=== PATIENT | male | born 1935 | race Caucasian/White ===

== ENCOUNTER 2019-06-13 11:00 | Outpatient (RCR) | payer SELFPAY | END 2019-07-13 00:01 | LOC: CR 11:00 | PROVIDERS: Family Provider Family Medicine; Referring Provider Internal Medicine Cardiovascular Disease; Visit Provider Internal Medicine Cardiovascular Disease | DX: I20.8 Other forms of angina pectoris (principal) ==

== ENCOUNTER 2019-07-19 16:05 | Outpatient (CLI) | payer MEDICARE, BC, SELFPAY ==
--- NOTE | 2019-07-19 16:12 | CTR_ITS ---
PROCEDURE INFORMATION: Exam: CT Abdomen And Pelvis Without Contrast Exam date and time: 07/19/2019 4:44 PM Age: 83 years old Clinical indication: Abdominal pain; Localized; Left lower quadrant (llq); Additional info: Obstipation, acute llq pain TECHNIQUE: Imaging protocol: Computed tomography of the abdomen and pelvis without contrast. Total DLP: 1113.51 mGy-cm Radiation optimization: All CT scans at this facility use at least one of these dose optimization techniques: automated exposure control; mA and/or kV adjustment per patient size (includes targeted exams where dose is matched to clinical indication); or iterative reconstruction. COMPARISON: CTA Thorac/Abd Aor [id number] 08/04/2018 1:50 PM FINDINGS: Lungs: There is subpleural atelectasis of the dependent portions of the lungs. Mediastinum: A small hiatal hernia is present. Liver: Unremarkable.No mass. Gallbladder and bile ducts: There has been a cholecystectomy. Pancreas: Normal. No ductal dilation. Spleen: Normal. No splenomegaly. Adrenals: Normal. No mass. Kidneys and ureters: There is no evidence of hydronephrosis. Punctate nephrolithiasis versus renal vascular calcifications are noted. There are no obstructing calculi. There is inflammatory perinephric stranding. Stomach and bowel: There is a focus of extraluminal inflammation with central fat density in the left lower quadrant/distal descending colon image 72. No ileus or obstruction. No additional bowel thickening or inflammatory changes are identified. Appendix: A normal appendix is identified. Intraperitoneal space: Unremarkable. No free air. No significant fluid collection. Vasculature: There is unchanged ectasia with moderate atherosclerotic changes in the aorta. The distal thoracic aorta measures 3.5 cm unchanged since the prior exam. Heavy calcification of the abdominal aorta and the origin of the renal arteries is identified. The abdominal aorta is ectatic with moderate to severe atherosclerotic changes. There is no aneurysm of the abdominal aorta. The right common iliac artery measures 2.1 cm and the left measures 1.8 cm in size unchanged since the prior exam. Lymph nodes: Unremarkable.No enlarged lymph nodes. Bladder: There is nonspecific bladder wall thickening. This may be related to incomplete distention. There is a small left-sided bladder diverticulum. Reproductive: The prostate demonstrates marked nonspecific enlargement. The seminal vesicles are normal. Bones/joints: Severe degenerative changes are noted in the lumbar spine. Marked bony remodeling and deformity is noted especially at L3-L4. Degenerative retrolisthesis of L3 on L4 is unchanged. No acute bony abnormality. Dextroscoliosis of the lumbar spine is noted. Soft tissues: There is a small fat filled periumbilical hernia unchanged since the prior exam. There are bilateral inguinal hernias. A loop of nonobstructed bowel is noted within the right inguinal hernia. CT/CT abdomen pelvis wo con [id number] IMPRESSION: 1. Epiploic appendigitis of the descending colon without evidence of colonic perforation or abscess. 2. Marked atherosclerotic changes in the aorta. 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 Radiation Dose CTDIVOL = (mGy): DLP = 1113.51 (mGy-cm)
[2019-07-19] MEDS: iohexol 300 mg/mL 50 mL Btl IV (16:47)
== END 2019-07-19 16:06 | disposition home or self-care (01) ==
LOC: CT 16:11
PROVIDERS: Family Provider Family Medicine; PCP Family Medicine; Visit Provider Family Medicine
DX: K63.89 Other specified diseases of intestine (principal); I70.0 Atherosclerosis of aorta; I72.3 Aneurysm of iliac artery
CPT/HCPCS: 74176

== ENCOUNTER 2019-07-20 14:46 | Outpatient (RCR) | payer SELFPAY | END 2019-08-13 23:59 | disposition home or self-care (01) | LOC: CR 14:46 | PROVIDERS: Family Provider Family Medicine; PCP Family Medicine; Referring Provider Internal Medicine Cardiovascular Disease; Visit Provider Internal Medicine Cardiovascular Disease | DX: I20.8 Other forms of angina pectoris (principal) ==

== ENCOUNTER 2019-08-16 10:47 | Outpatient (RCR) | payer SELFPAY | END 2019-09-11 23:59 | disposition home or self-care (01) | LOC: CR 10:47 | PROVIDERS: Family Provider Family Medicine; PCP Family Medicine; Referring Provider Internal Medicine Cardiovascular Disease; Visit Provider Internal Medicine Cardiovascular Disease | DX: I20.8 Other forms of angina pectoris (principal) ==

== ENCOUNTER 2019-09-13 11:27 | Outpatient (RCR) | payer SELFPAY | END 2019-10-12 23:59 | disposition home or self-care (01) | LOC: CR 11:27 | PROVIDERS: Family Provider Family Medicine; PCP Family Medicine; Referring Provider Internal Medicine Cardiovascular Disease; Visit Provider Internal Medicine Cardiovascular Disease | DX: I20.8 Other forms of angina pectoris (principal) ==

== ENCOUNTER 2019-12-21 13:05 | Outpatient (RCR) | payer SELFPAY | END 2020-01-11 23:59 | disposition home or self-care (01) | LOC: CR 13:05 | PROVIDERS: Family Provider Family Medicine; PCP Family Medicine; Referring Provider Internal Medicine Cardiovascular Disease; Visit Provider Internal Medicine Cardiovascular Disease | DX: I20.8 Other forms of angina pectoris (principal) ==

== ENCOUNTER 2020-01-12 11:47 | Outpatient (RCR) | payer SELFPAY | END 2020-02-11 23:59 | disposition home or self-care (01) | LOC: CR 11:47 | PROVIDERS: PCP Family Medicine; Referring Provider Internal Medicine Cardiovascular Disease; Visit Provider Internal Medicine Cardiovascular Disease | DX: I20.8 Other forms of angina pectoris (principal) ==

== ENCOUNTER 2020-01-24 15:25 | Outpatient (CLI) | payer MEDICARE, BC, SELFPAY ==
--- NOTE | 2020-01-24 15:45 | USCV_ITS ---
Urbano Hernandez Age: 84 Gender: M : 1935 Exam Date: 01/24/2020 15:31 Ordering Phys: Fadi Padron MD ([email or web address]) Technologist: Lorna Ruiz Exam Location: [facility] – [place], [place] Indication: CAD BP: / HR: 60 Rhythm: Sinus Technical Quality: Fair MEASUREMENTS (Male / Female) Normal Values 2D ECHO LV Diastolic Diameter PLAX 2.5 cm 4.2 - 5.9 / 3.9 - 5.3 cm LV Systolic Diameter PLAX 2.0 cm IVS Diastolic Thickness 0.8 cm 0.6 - 1.0 / 0.6 - 0.9 cm IVS Systolic Thickness 1.1 cm LVPW Diastolic Thickness 0.8 cm 0.6 - 1.0 / 0.6 - 0.9 cm LVPW Systolic Thickness 1.0 cm LVOT Diameter 2.1 cm LV Ejection Fraction 2D Teich 45.7 % LV Ejection Fraction MOD 2C 56.4 % LV Ejection Fraction 2C AL 54.9 % LA Diameter 4.8 cm LA Width 3.5 cm LA Height 4.4 cm RA Width 4.3 cm RA Height 5.7 cm M-MODE Aortic Annulus Diameter 3.9 cm LA Ao Ratio MM 1.2 MV E Point Septal Separation 1.4 cm DOPPLER AV Peak Velocity 167.0 cm/s LVOT Peak Velocity 89.0 cm/s AV Area Cont Eq vti 2.1 cm squared AV Area Cont Eq pk 1.9 cm squared MV Area PHT 4.3 cm squared Mitral E to A Ratio 0.8 MV E' Velocity 10.0 cm/s Mitral E to MV E' Ratio 5.6 Mitral E to LV E' Lateral Ratio 5.4 Mitral E to LV E' Septal Ratio 5.9 TR Peak Velocity 126.0 cm/s TR Peak Gradient 6.4 mmHg TV Peak E Velocity 84.0 cm/s Right Atrial Pressure 3.0 mmHg Pulmonary Artery Systolic Pressu 9.4 mmHg PV Peak Velocity 109.0 cm/s FINDINGS Left Ventricle Normal left ventricular size is slightly diminished LV ejection fraction of around 50% .dyskinetic basal inferolateral wall segment.Grade I/IV diastolic dysfunction (abnormal relaxation filling pattern), normal to mildly elevated filling pressures. Right Ventricle Pacemaker/defibrillator wire in the right ventricle Right Atrium Pacemaker/defibrillator wire.mildly increased right atrial size. Left Atrium Possibly of normal size Mitral Valve Thickened mitral valve. Trace to mild mitral valve regurgitation. Aortic Valve Thickened aortic valve. [id number] aortic valve regurgitation. Tricuspid Valve Could not visualized well. No gross abnormalities noted Pulmonic Valve Pulmonic valve not well visualized. Pericardium No pericardial effusion. Aorta Mildly dilated aortic annulus measuring 3.9 cm in diameter. CONCLUSIONS Normal left ventricular size with slightly diminished ejection fraction of 50%. Dyskinetic basal inferolateral wall segment.Grade I/IV diastolic dysfunction (abnormal relaxation filling pattern), normal to mildly elevated filling pressures. Thickened mitral valve. Trace to mild mitral valve regurgitation. Thickened aortic valve. [id number] aortic valve regurgitation. Mildly increased right atrial size. Mildly dilated aortic annulus measuring 3.9 cm in diameter. There is no pericardial effusion. There are no intracardiac masses. Comparison with the previous study is difficult because of the difference in the technical quality. Dr Fadi Padron MD FAC (Electronically Signed) Final Date: 25 January 2020 08:36 S
== END 2020-01-24 15:26 | disposition home or self-care (01) ==
LOC: US 15:26
PROVIDERS: PCP Family Medicine; Visit Provider Internal Medicine Cardiovascular Disease
DX: I71.2 Thoracic aortic aneurysm, without rupture (principal); I25.10 Atherosclerotic heart disease of native coronary artery without angina pectoris; I08.0 Rheumatic disorders of both mitral and aortic valves
CPT/HCPCS: 93306

== ENCOUNTER 2020-02-15 10:52 | Outpatient (RCR) | payer SELFPAY | END 2020-03-13 23:59 | disposition home or self-care (01) | LOC: CR 10:52 | PROVIDERS: PCP Family Medicine; Referring Provider Internal Medicine Cardiovascular Disease; Visit Provider Internal Medicine Cardiovascular Disease | DX: I20.8 Other forms of angina pectoris (principal) ==

== ENCOUNTER → 2020-02-22 11:10 | Outpatient (BNVA) | payer MEDICARE, BC, SELFPAY | PROVIDERS: PCP Family Medicine; Visit Provider Urology | DX: R33.9 Retention of urine, unspecified (principal); N40.1 Benign prostatic hyperplasia with lower urinary tract symptoms; Z87.438 Personal history of other diseases of male genital organs | CPT/HCPCS: 81001 ==

== ENCOUNTER → 2020-03-06 10:37 | Outpatient (BNVA) | payer MEDICARE, BC, SELFPAY | PROVIDERS: PCP Family Medicine; Visit Provider Internal Medicine Cardiovascular Disease | DX: I25.10 Atherosclerotic heart disease of native coronary artery without angina pectoris (principal) | CPT/HCPCS: 80048; 83880 ==

== ENCOUNTER 2020-03-14 14:14 | Outpatient (RCR) | payer SELFPAY | END 2020-04-12 23:59 | disposition home or self-care (01) | LOC: CR 14:14 | PROVIDERS: PCP Family Medicine; Referring Provider Internal Medicine Cardiovascular Disease; Visit Provider Internal Medicine Cardiovascular Disease | DX: I20.8 Other forms of angina pectoris (principal) ==

== ENCOUNTER → 2020-03-22 11:04 | Outpatient (BNVA) | payer MEDICARE, SELFPAY | PROVIDERS: PCP Family Medicine; Visit Provider Internal Medicine Cardiovascular Disease | DX: I10 Essential (primary) hypertension (principal); R06.02 Shortness of breath | CPT/HCPCS: 80048; 80076; 83880 ==

== ENCOUNTER 2020-04-10 14:10 | Inpatient (IN) | payer MEDICARE, BC, SELFPAY ==
[2020-04-10] VITALS (9 sets, daily range): BP systolic 150–172; BP diastolic 52–94; PULSE 62–138; RESP 14–21; TEMP 36.8–36.9; O2SAT 94–97; BMI 27.1
--- NOTE | 2020-04-10 14:19 | XRR_ITS ---
PROCEDURE INFORMATION: Exam: XR Chest, 1 View Exam date and time: 04/10/2020 2:59 PM Age: 84 years old Clinical indication: Dyspnea; Prior surgery; Surgery type: Pacemaker TECHNIQUE: Imaging protocol: XR of the chest Views: 1 view. COMPARISON: [facility] Chest 2 views 10/30/2018 3:42 PM FINDINGS: Tubes, catheters and devices: Cardiac pacemaker is present on the right side Lungs: Unremarkable. No consolidation. Pleural space: Elevation of the left hemidiaphragm No pleural effusion. No pneumothorax. Heart/Mediastinum: Unremarkable. No cardiomegaly. Bones/joints: Unremarkable. XR/XR chest 1V portable [id number] IMPRESSION: 1. No acute findings. 2. Cardiac pacemaker right chest 3. Elevated left hemidiaphragm
--- NOTE | 2020-04-10 14:30 | ED_ITS ---
HPI - General Adult General: Chief complaint: General Medical Stated complaint: DIARRHEA, COVID + Time Seen by Provider: 04/10/20 14:18 History of Present Illness: HPI narrative: 84-year-old male presents the emergency room complaining of difficulty breathing is been monitoring his oxygen sat at home is been 86% but he is not had any respiratory distress he is not usually on oxygen to maintain his sats in the 90s he is needing 4 L/min of oxygen. He states he tested positive with a rapid antibody test at an outside clinic approximately 10 days ago. He is not been having any fever he had diarrhea early on and 7 noticing a but that has for the most part resolved. He is mildly overweight he has a history of heart disease and hypertension. Onset (ago): day(s) () Relieving factors: none Exacerbating factors: none Associated symptoms: Reports cough, dyspnea, malaise and short of breath; Deny chest pain, confusion, diaphoresis, decreased appetite, fevers/chills, headache(s), nausea, rash, palpitations, seizures, syncope, vomiting or weakness Treatments prior to arrival: none Review of Systems Const: Reports: malaise; Denies: diaphoresis ENMT: Denies: throat pain, ear or mastoid pain, nasal discharge or nasal congestion Card: Denies: chest pain, palpitations or syncope Resp: Reports: dyspnea GI: Denies: nausea or vomiting : Denies: flank pain, dysuria, urinary frequency or urinary urgency Skin/Breast: Denies: rash Neuro: Denies: headache(s) or confusion [facility] ED PFSH: Medical History (Updated 04/10/20 @ 16:15 by Jerome Lozoya DO) Arthritis ASHD (arteriosclerotic heart disease) BPH loc w urin obs/LUTS Chronic back pain Elevated PSA History of pacemaker Hyperlipidemia Hypertension Pacemaker Peripheral arterial disease Thoracic aortic aneurysm Ulcerative colitis Surgical History H/O arthroscopy of left knee History of back surgery Hx of cholecystectomy S/P femoral-femoral bypass surgery Family History Mother , at in her 80's No problems noted. Father , at age 88 Diabetes Other Cancer Osteoporosis Social History Smoking and tobacco status: former smoker Alcohol intake: current Alcohol intake frequency: holidays/special occasions only Alcohol type: wine Marital status: Current occupational status: retired History of recent travel: No Physical Exam Const: COMMON NORMALS: no acute distress GENERAL APPEARANCE: cooperative and comfortable ORIENTATION/CONSCIOUSNESS: Yes awake, Yes oriented to person, Yes oriented to place and Yes oriented to time HENMT: COMMON NORMALS: normocephalic, atraumatic and hearing grossly normal bilaterally HEAD & SCALP: normocephalic and atraumatic Neck/C-Spine: COMMON NORMALS: no JVD Resp: COMMON NORMALS: normal respiratory effort, No retractions, No use of accessory muscles and clear to auscultation bilaterally AUSCULTATION: clear to auscultation bilaterally Cardio: COMMON NORMALS: no JVD, regular rate, regular rhythm and No murmurs present (Cardio) RATE: regular rate RHYTHM: regular rhythm GI: COMMON NORMALS: Soft to palpation and No hepatosplenomegaly present AUSCULTATION: Yes normoactive bowel sounds PALPATION: Yes Soft to palpation, No Tenderness to palpation present (GI), No Guarding due to palpation present (GI) and Yes No hepatosplenomegaly present Extremity: COMMON NORMALS: normal to inspection, capillary refill normal, no clubbing, cyanosis or edema, no calf tenderness and no pedal edema Neuro: SENSORIUM/ORIENTATION: Yes oriented to person, Yes oriented to place and Yes oriented to time Skin: COMMON NORMALS: no rashes or lesions noted GENERAL SKIN EXAM: no rashes or lesions noted Course Vital Signs: Vital signs: Vital Signs Temperature 98.1 F 04/12/20 16:14 Pulse Rate 69 04/12/20 16:14 Respiratory Rate 23 H 04/12/20 16:14 Blood Pressure 104/64 04/12/20 16:14 Pulse Oximetry 94 04/12/20 16:14 MDM - General Adult MDM Narrative: Medical decision making narrative: He does have risk factor being hypertension is a gentleman comfortable with sending him home with just supplemental oxygen. We will go ahead and admit him discussed with Dr. Camp he did asked that we do a CTA of the chest in route to the [facility]. Lab Data: Labs: Lab Results 0904/10/20 04/10/20 Range/Units 14:42 14:42 14:42 WBC 6.2 (4.0-10.0) 10^3/ uL RBC 3.98 L (4.1-5.3) 10^6/u L Hgb 13.1 (11.7-16.6) g/dL Hct 39.6 L (42.0-52.0) % MCV 99.5 H (80-94) fL MCH 32.9 (28.0-34.0) pg MCHC 33.1 (30.0-36.0) g/dL RDW 14.4 (12.1-15.1) % Plt Count 212 (130-400) 10^3/c mm MPV 9.6 (7.4-10.4) fL Neut % (Auto) 81.3 % Lymph % (Auto) 9.7 % [place] % (Auto) 7.1 % Eos % (Auto) 0.0 % Baso % (Auto) 0.0 % Neut # (Auto) 5.05 (1.8-7.7) 10^3/u L Lymph # (Auto) 0.6 L (0.8-4.8) 10^3/u L [place] # (Auto) 0.4 (0.2-0.9) 10^3/u L Eos # (Auto) 0.0 (0.0-0.8) 10^3/u L Baso # (Auto) 0.0 (0.0-0.1) 10^3/u L Nucleated RBC % (a uto) 0 % Nucleated RBCs # 0.0 /100WBC Fibrinogen 608 H (174-498) mg/dL D-Dimer 1.74 H (0-0.59) ug/mIFE U Sodium 135 L (136-145) mmol/L Potassium 4.0 (3.5-5.1) mmol/L Chloride 99 (98-107) mmol/L Carbon Dioxide 27 (22-29) mmol/L Anion Gap 13.0 (5-19) BUN 28 H (8-23) mg/dL Creatinine 1.3 H (0.7-1.2) mg/dL GFR Calculation Not Reportable Glucose 125 H (65-115) mg/dL Calculated Osmolal ity 287 (285-295) mOsm/k g Lactic Acid (0.5-2.2) mmol/L Calcium 8.3 L (8.5-10.5) mg/dL Total Bilirubin 0.7 (0.15-1.2) mg/dL AST 167 H (0-40) U/L ALT 199 H (0-41) U/L Alkaline Phosphata se 57 (40-130) IU/L Lactate Dehydrogen ase 443 H (135-225) U/L C-Reactive Protein 55.5 H (0.0-4.9) mg/L Total Protein 6.1 L (6.6-8.7) g/dL Albumin 3.5 (3.5-5.2) g/dL Globulin 2.6 (1.3-4.6) g/dL SARS-CoV-2 RNA (RT -PCR) (NOT DETECTED) SARS-CoV-2 Ag (Rap id) (Negative) 04/10/20 04/10/20 04/10/20 Range/Units 14:42 15:27 16:32 WBC (4.0-10.0) 10^3/ uL RBC (4.1-5.3) 10^6/u L Hgb (11.7-16.6) g/dL Hct (42.0-52.0) % MCV (80-94) fL MCH (28.0-34.0) pg MCHC (30.0-36.0) g/dL RDW (12.1-15.1) % Plt Count (130-400) 10^3/c mm MPV (7.4-10.4) fL Neut % (Auto) % Lymph % (Auto) % [place] % (Auto) % Eos % (Auto) % Baso % (Auto) % Neut # (Auto) (1.8-7.7) 10^3/u L Lymph # (Auto) (0.8-4.8) 10^3/u L [place] # (Auto) (0.2-0.9) 10^3/u L Eos # (Auto) (0.0-0.8) 10^3/u L Baso # (Auto) (0.0-0.1) 10^3/u L Nucleated RBC % (a uto) % Nucleated RBCs # /100WBC Fibrinogen (174-498) mg/dL D-Dimer (0-0.59) ug/mIFE U Sodium (136-145) mmol/L Potassium (3.5-5.1) mmol/L Chloride (98-107) mmol/L Carbon Dioxide (22-29) mmol/L Anion Gap (5-19) BUN (8-23) mg/dL Creatinine (0.7-1.2) mg/dL GFR Calculation Glucose (65-115) mg/dL Calculated Osmolal ity (285-295) mOsm/k g Lactic Acid 1.1 (0.5-2.2) mmol/L Calcium (8.5-10.5) mg/dL Total Bilirubin (0.15-1.2) mg/dL AST (0-40) U/L ALT (0-41) U/L Alkaline Phosphata se (40-130) IU/L Lactate Dehydrogen ase (135-225) U/L C-Reactive Protein (0.0-4.9) mg/L Total Protein (6.6-8.7) g/dL Albumin (3.5-5.2) g/dL Globulin (1.3-4.6) g/dL SARS-CoV-2 RNA (RT -PCR) Detected A (NOT DETECTED) SARS-CoV-2 Ag (Rap id) Positive H (Negative) Discharge Plan Discharge Patient Disposition: Admitted As Inpatient Admit Provider: Alex Dhaliwal Clinical Impression: COVID-19 virus infection, Hypoxia Condition: Stable Referrals: Bashir Rosales MD [Primary Care Provider] - Discharge Date/Time: 04/10/20 18:35 Coding Level of Care Code ED Cytopathology Technologist for Chg Fwd Exam Comprehensive
[2020-04-10 15:03] LABS: Fibrinogen 608 mg/dL (174-498)
[2020-04-10 15:06] LABS: D Dimer 1.74 ug/mIFEU (0-0.59)
[2020-04-10 15:10] LABS: Alanine Aminotransferase 199 U/L (0-41); Albumin Level 3.5 g/dL (3.5-5.2); Alkaline Phosphatase 57 IU/L (40-130); Aspartate Amino Transferase 167 U/L (0-40); Blood Urea Nitrogen 28 mg/dL (8-23); C Reactive Protein 55.5 mg/L (0.0-4.9); Calcium 8.3 mg/dL (8.5-10.5); Carbon Dioxide 27 mmol/L (22-29); Chloride 99 mmol/L (98-107); Globulin 2.6 g/dL (1.3-4.6); Glucose 125 mg/dL (65-115); Lactate Dehydrogenase 443 U/L (135-225); Osmolality Calculated 287 mOsm/kg (285-295); Sodium 135 mmol/L (136-145); Total Bilirubin 0.7 mg/dL (0.15-1.2); Total Protein 6.1 g/dL (6.6-8.7)
[2020-04-10 15:11] LABS: Hematocrit 39.6 % (42.0-52.0); Hemoglobin 13.1 g/dL (11.7-16.6); Lactic Sepsis W/Reflex 1.1 mmol/L (0.5-2.2); Lymphocytes # 0.6 10^3/uL (0.8-4.8); Lymphocytes % 9.7 %; Mean Corpuscular HGB Conc 33.1 g/dL (30.0-36.0); Mean Corpuscular Hemoglobin 32.9 pg (28.0-34.0); Mean Corpuscular Volume 99.5 fL (80-94); Mean Platelet Volume 9.6 fL (7.4-10.4); Monocytes # 0.4 10^3/uL (0.2-0.9); Monocytes % 7.1 %; Neutrophils # 5.05 10^3/uL (1.8-7.7); Neutrophils % 81.3 %; Nucleated Red Blood Cells % 0 %; Platelet Count 212 10^3/cmm (130-400); Red Blood Count 3.98 10^6/uL (4.1-5.3); Red Cell Distribution Width 14.4 % (12.1-15.1); White Blood Count 6.2 10^3/uL (4.0-10.0)
[2020-04-10] MEDS: dexamethasone 4 mg/mL INJ 6 MG IVP (15:15)
[2020-04-10 15:23] LABS: Creatinine Clr Calc Pharmacy 49.5667
--- NOTE | 2020-04-10 15:28 | PC.NURSE ---
Patient COVID swabbed and sent to lab.
--- NOTE | 2020-04-10 16:02 | CTR_ITS ---
PROCEDURE INFORMATION: Exam: CT Angiography Chest With Contrast Exam date and time: 04/10/2020 5:31 PM Age: 84 years old Clinical indication: Shortness of breath; Prior surgery; Additional info: Hypoxia TECHNIQUE: Imaging protocol: Computed tomographic angiography of the chest with intravenous contrast. 3D rendering (Not supervised by radiologist): MIP and/or 3D reconstructed images were created by the technologist. Radiation optimization: All CT scans at this facility use at least one of these dose optimization techniques: automated exposure control; mA and/or kV adjustment per patient size (includes targeted exams where dose is matched to clinical indication); or iterative reconstruction. Contrast material: VISI 320; Contrast volume: 68 ml; Contrast route: INTRAVENOUS (IV); COMPARISON: CTA Thorac/Abd Aor [id number] 08/04/2018 1:50 PM RADIATION DOSE METRICS: Total DLP (mGy-cm): 629.7 FINDINGS: Tubes, catheters and devices: Pacemaker defibrillator. Pulmonary arteries: No visible pulmonary embolism/pulmonary arterial thrombus. Aorta: Mild fusiform aneurysmal dilatation of the ascending thoracic aorta stable since 08/04/2018. Moderate arterial sclerotic disease. Tortuous thoracic aorta which can be seen in hypertensive cardiovascular disease. Lungs: Mild patchy bibasilar ground-glass opacities which could reflect active interstitial pneumonitis. Centrilobular emphysema. Senile fibrosis particularly in the lung bases. Evidence of COPD/chronic bronchitis. Mild dependent atelectasis. Pleural space: Unremarkable. No pneumothorax. No pleural effusion. Heart: Advanced 3 vessel coronary artery disease. Mild cardiomegaly. Left ventricular prominence. No visible pericardial effusion. Lymph nodes: No visible active mediastinal or hilar lymphadenopathy. Calcified mediastinal complexes of antecedent granulomatous disease. Gallbladder and bile ducts: Status post cholecystectomy. Bones/joints: Age-appropriate degenerative disease of the spine. Soft tissues: Unremarkable for age. CT/CT angio chest PE protcl [id number] IMPRESSION: 1. No visible pulmonary embolism/pulmonary arterial thrombus. 2. Mild patchy bibasilar ground-glass opacities which could reflect active interstitial pneumonitis. 3. Centrilobular emphysema. 4. Senile fibrosis particularly in the lung bases. 5. Evidence of COPD/chronic bronchitis. 6. Mild dependent atelectasis. 7. Antecedent granulomatous disease. 8. Advanced 3 vessel coronary artery disease. 9. Stable mild fusiform aneurysmal dilatation of the ascending thoracic aorta. Radiation Dose CTDIVOL = (mGy): DLP = 629.7 (mGy-cm)
--- NOTE | 2020-04-10 16:13 | PC.NURSE ---
BS was 66 via glucometer, sprite provided.
--- NOTE | 2020-04-10 16:35 | PC.NURSE ---
Patient rapid COVID swabbed at this time and sent to lab.
[2020-04-10 17:37] LABS: SARS Covid-2 Antigen Positive (Negative)
--- NOTE | 2020-04-10 18:33 | PM.HP ---
Providers/Chief Complaint Admitting Physician: Alex Dhaliwal MD Primary Care Provider: Bashir Rosales MD Chief Complaint: DIARRHEA, COVID + History of Present Illness Urbano Hernandez JR is a 84 year old male with past medical history of hypertension, ICD for ventricular tachycardia/syncope, CAD, PAD, post fem-pop bypass, popliteal artery aneurysm, thoracic artery aneurysm who presented to the ER because of 2 episodes of diarrhea since today morning, cough with difficulty in breathing since last night and feeling weak for last 1 day. In the ER COVID rapid antigen was positive. On evaluation patient states he was tested for COVID-19 around 10 days ago in his PCPs office and was positive. At that time patient has been having sore throat, runny nose, myalgias for 1 week. Patient is not having those symptoms anymore. Patient was at his baseline health till yesterday when he started having above symptoms. On presentation to the ER patient was saturating in mid 80s on room air so was put on 3 L nasal cannula and presently saturating 94%. He denies of having any nausea, vomiting, chest pain, palpitations, headache, dizziness. He does complain of mild loss of sense of sense of smell. He had one episode of diarrhea today morning which was nonbloody, not foul-smelling. Blood work in the ER showed a white count of 6.2, hemoglobin of 13.1, platelet of 212, d-dimer of 1.74, sodium of 135, chloride of 99, creatinine of 1.3 with baseline creatinine running from 1.6-1.8, AST/ALT of 167/199. Review of Systems General: Reports: 10 or more systems reviewed and unremarkable except in HPI and below Const: Reports: malaise; Denies: fever(s), chills, body aches, change in appetite, change in weight, night sweats, diaphoresis, change in sleep pattern, daytime sleepiness or snoring Eyes: Denies: change in vision, blurry vision, photophobia, eye discomfort or eye discharge ENMT: Denies: throat pain, enlarged tonsils, hoarseness, mouth pain, oral sores, dry mouth, tinnitus, nasal congestion or post nasal drip Card: Denies: chest pain, palpitations, irregular heart rhythm, edema, swelling of feet/ankles, lightheadedness, syncope, pre-syncope, dyspnea on exertion, orthopnea, leg pain with exertion or acrocyanosis Resp: Reports: dyspnea and productive cough; Denies: non-productive cough, wheezing, stridor, pain on inspiration, change in phlegm color, hemoptysis or chest congestion GI: Reports: diarrhea; Denies: abdominal pain, nausea, vomiting, hematemesis, coffee ground emesis, dysphagia, heartburn, constipation, bloating, GI cramping, change in bowel habits, pain on defecation, hematochezia or melena : Denies: flank pain, difficulty urinating, dysuria, urinary frequency, urinary urgency, urinary hesitancy, urinary dribbling, difficulty starting urination, change in urine stream, nocturia or hematuria Musc: Denies: neck pain, back pain, extremity pain, joint pain, joint swelling, joint redness, joint stiffness or limited range of motion Neuro: Denies: headache(s), numbness in extremities, weakness in extremities, sensory changes, lack of coordination, difficulty walking, frequent falls, dizziness, vertigo, confusion, Slurred speech present, difficulty communicating thoughts or seizure-like activity Psych: Denies: anxiety, depression, mood swings, panic attacks, hopelessness or irritability Endo: Denies: polyuria, polydipsia, tired all the time, cold intolerance, excessive sweating, flushing or heat intolerance Steve/Lymph: Denies: easy bruising or easy bleeding All/Imm: Denies: tongue swelling, facial swelling or acute wheezing Medications/Allergies Home Medications Medication Instructions Recorded Confirmed Last Taken Type potassium chloride 20 mEq 20 meq PO DAILY #90 tab 10/04/19 04/10/20 04/09/20 Rx tablet,extended release isosorbide mononitrate 30 mg 30 mg PO DAILY 90 Days #90 tab 11/01/19 04/10/20 04/09/20 Rx tablet,extended release 24 hr finasteride 5 mg tablet 5 mg PO DAILY #90 tab 11/02/19 04/10/20 04/09/20 Rx furosemide 40 mg tablet 40 mg PO DAILY 01/03/20 04/10/20 04/09/20 History 20 MG ezetimibe 10 mg tablet 10 mg PO DAILY #90 tab 02/08/20 04/10/20 04/09/20 Rx cetirizine 10 mg tablet 10 mg PO DAILY PRN tab 02/22/20 04/10/20 Unknown History docusate sodium 100 mg capsule 100 mg PO DAILY PRN 02/22/20 04/10/20 Unknown History magnesium oxide 500 mg capsule 500 mg PO BID 02/22/20 04/10/20 04/09/20 History multivitamin 1 tab PO DAILY 02/22/20 04/10/20 04/09/20 History nitroglycerin 0.4 mg sublingual 0.4 mg SUBLINGUAL Q5M PRN 02/22/20 04/10/20 Unknown History tablet polyethylene glycol 3350 17 17 gm PO DAILY PRN 02/22/20 04/10/20 Unknown History gram/dose oral powder rosuvastatin 20 mg tablet 20 mg PO DAILY 02/22/20 04/10/20 04/09/20 History silodosin 8 mg capsule 8 mg PO .COMPLEX 02/22/20 04/10/20 04/07/20 History lisinopril 10 mg tablet 10 mg PO DAILY 30 Days #30 tab 03/15/20 04/10/20 04/09/20 Rx amiodarone 200 mg PO DAILY 04/10/20 04/10/20 04/10/20 History clopidogrel 75 mg PO DAILY 04/10/20 04/10/20 04/09/20 History flunisolide 2 spray INTRANASAL BID PRN 04/10/20 04/10/20 Unknown History Allergies Allergy/AdvReac Type Severity Reaction Status Date / Time morphine Allergy Unknown Verified 02/22/20 11:12 Sulfa (Sulfonamide Allergy Unknown Verified 02/22/20 11:12 Antibiotics) amlodipine AdvReac Peripheral Verified 03/15/20 22:32 edema hydralazine AdvReac head Verified 02/22/20 11:12 stuffed up PFSH Acute PFSH: Medical History (Updated 04/10/20 @ 16:15 by Jerome Lozoya DO) Arthritis ASHD (arteriosclerotic heart disease) BPH loc w urin obs/LUTS Chronic back pain Elevated PSA History of pacemaker Hyperlipidemia Hypertension Pacemaker Peripheral arterial disease Thoracic aortic aneurysm Ulcerative colitis Surgical History H/O arthroscopy of left knee History of back surgery Hx of cholecystectomy S/P femoral-femoral bypass surgery Family History Mother , at in her 80's No problems noted. Father , at age 88 Diabetes Other Cancer Osteoporosis Social History Smoking and tobacco status: former smoker Alcohol intake: current Alcohol intake frequency: holidays/special occasions only Alcohol type: wine Marital status: Current occupational status: retired History of recent travel: No Vitals/I&O/Wt Last Vital Signs Temp 98.3 F 04/10/20 14:22 Pulse 62 04/10/20 18:10 Resp 15 04/10/20 18:10 BP 153/86 04/10/20 18:10 Pulse Ox 95 04/10/20 18:10 Weight last 48 hrs Weight 90.718 kg Physical Exam Narrative: EXAM NARRATIVE: General: No acute distress, AO x3, 96% on 3 L nasal cannula HEENT: PERRLA, pupils bilaterally equal and reactive Chest: Normal vesicular breath sounds, occasional rhonchi present all over the lung orozco, no added sounds, equal good air entry bilaterally CVS: S1-S2 regular, end diastolic murmur at the aortic area, no tachycardia, no gallops, no rubs Abdomen: Soft, nontender, no organomegaly, bowel sounds present Neuro: No focal deficits, no facial deformity, AO x3, power 5/5 in all limbs Data : 04/10/20 14:42 04/10/20 14:42 A&P Assessment and plan (1) Hypoxia: Status: Acute (2) COVID-19 virus infection: Status: Acute (3) Pacemaker: Status: Acute (4) ASHD (arteriosclerotic heart disease): Status: Acute (5) Hypertension: Status: Acute Qualifiers: Hypertension type: essential hypertension Qualified Code(s): I10 - Essential (primary) hypertension (6) Hyperlipidemia: Status: Acute Qualifiers: Hyperlipidemia type: mixed hyperlipidemia Qualified Code(s): E78.2 - Mixed hyperlipidemia Additional A&P Information Acute hypoxic respiratory failure: Most likely because of COVID-19 pneumonia. Patient was tested positive around 10 days ago and has had a symptoms for more than 2 and half weeks now. Cannot rule out post viral bacterial infection, pulmonary embolism post COVID. Do CTA PE protocol. For now start patient on Eliquis 5 mg twice daily. At least moderate disease as patient is requiring at least 2 to 4 L of oxygen supplementation to keep saturation over 90%. Given patient does not have any leukocytosis, fever bacterial pneumonia is unlikely. Check urine Legionella, bacterial antigen, urinalysis, blood culture, procalcitonin, proBNP, MRSA swab, sputum culture. For now start patient on levofloxacin 500 every 48 hours as per creatinine clearance. CHF unlikely as patient seems euvolemic or at baseline fluid balance. Most recent echo done in January 2020 shows an EF of 50% with grade 1 diastolic dysfunction with mild to moderate AI. Strict input output charting, fluid restriction up to 1500 cc, daily weights. Will dose daily Lasix daily as per the fluid status. Continue to monitor inflammatory markers daily. Monitor ferritin level, fibrinogen level, d-dimer level, CRP, LDH daily. Will check CTA chest to rule out PE and better visualization of consolidation. Remdesevir for 5-day course, dexamethasone 6 mg IV stat. Start patient on vitamin C, zinc. Advair, Spiriva. Oxygen supplementation keeping saturation over 90%. CKD: Baseline creatinine 1.4-1.8. Creatinine better at the moment. We will avoid nephrotoxic drugs as patient is getting CTA PE done right now. We will continue to monitor BMP daily. Hypertension: Goal blood pressure less than 140/90 mmHg. Continue home dose of antihypertensive including Imdur. Patient's creatinine better than before but as patient is getting CTA PE will hold off lisinopril for now. CAD/PAD: Patient is chest pain-free. Continue home dose of Plavix, statin, . History of ventricular tachycardia: Patient has an ICD. Continue home dose of amiodarone. Continue other chronic medications. We will change medication as per the results of the blood work and clinical picture. Goals of care: Patient states he would not want any mechanical ventilation with intubation but is okay with chest compressions. Eliquis will also help with DVT prophylaxis. Protonix for PUD prophylaxis. Cardiac diet. 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
[2020-04-10] MEDS: iodixanol 320 mg/mL 100mL Btl IV (18:45)
[2020-04-10] MEDS: benzonatate 100 mg Capsule PO (20:15)
[2020-04-10] MEDS: famotidine 20 mg/2 mL INJ IVP (20:19)
[2020-04-10 21:40] LABS: NT Pro B Type Natriuretic Pept 1211 pg/mL (0-450); Procalcitonin 0.08 ng/mL (0-0.5); Thyroid Stimulating Hormone 0.47 uIU/mL (0.27-4.20)
[2020-04-10 21:51] LABS: Iron 30 ug/dL (59-158)
[2020-04-10 22:16] LABS: Percent Saturation 19.1 % (20-50); Total Iron Binding Capacity 157 mcg/dl; Unsaturated Iron Binding 127 ug/dL (112-347)
[2020-04-11] VITALS (11 sets, daily range): BP systolic 101–136; BP diastolic 64–84; PULSE 0–77; RESP 17–35; TEMP 36.7–36.8; O2SAT 0–94
[2020-04-11 07:26] LABS: Basophils % 0.2 %; Hematocrit 38.4 % (42.0-52.0); Lymphocytes # 0.5 10^3/uL (0.8-4.8); Lymphocytes % 8.3 %; Mean Corpuscular HGB Conc 33.9 g/dL (30.0-36.0); Mean Corpuscular Hemoglobin 32.7 pg (28.0-34.0); Mean Corpuscular Volume 96.7 fL (80-94); Mean Platelet Volume 9.6 fL (7.4-10.4); Monocytes # 0.4 10^3/uL (0.2-0.9); Monocytes % 6.3 %; Neutrophils # 5.15 10^3/uL (1.8-7.7); Neutrophils % 83.6 %; Nucleated Red Blood Cells % 0 %; Platelet Count 254 10^3/cmm (130-400); Red Blood Count 3.97 10^6/uL (4.1-5.3); White Blood Count 6.2 10^3/uL (4.0-10.0)
[2020-04-11 07:41] LABS: Alanine Aminotransferase 174 U/L (0-41); Albumin Level 3.4 g/dL (3.5-5.2); Alkaline Phosphatase 56 IU/L (40-130); Anion Gap 16.1 (5-19); Aspartate Amino Transferase 126 U/L (0-40); Blood Urea Nitrogen 26 mg/dL (8-23); Calcium 8.3 mg/dL (8.5-10.5); Carbon Dioxide 24 mmol/L (22-29); Chloride 100 mmol/L (98-107); Globulin 1.9 g/dL (1.3-4.6); Glucose 120 mg/dL (65-115); Osmolality Calculated 288 mOsm/kg (285-295); Potassium 4.1 mmol/L (3.5-5.1); Sodium 136 mmol/L (136-145); Total Bilirubin 0.7 mg/dL (0.15-1.2); Total Protein 5.3 g/dL (6.6-8.7)
[2020-04-11 07:50] LABS: C Reactive Protein 56.7 mg/L (0.0-4.9); Chol HDL Ratio 2.57 mg/dL (1.0-5.00); Cholesterol 121 mg/dL (0-200); Creatine Phosphokinase 79 U/L (39-308); HDL Cholesterol 47 mg/dL (60-100); LDL Cholesterol Calculated 57 mg/dL (50-129); Lactate Dehydrogenase 415 U/L (135-225); NT Pro B Type Natriuretic Pept 2683 pg/mL (0-450); Triglycerides 84 mg/dL (0-150); VLDL Cholestrol Calculation 17 mg/dL (0-30)
[2020-04-11 08:06] LABS: Ferritin 1962 ng/mL (30-400)
[2020-04-11 08:40] LABS: Estmated Average Glucose 128; Hemoglobin A1C 6.1 % (4.0-6.0)
[2020-04-11 09:00] LABS: D Dimer 1.98 ug/mIFEU (0-0.59)
[2020-04-11] MEDS: clopidogrel 75 mg Tablet PO (09:26)
[2020-04-11] MEDS: benzonatate 100 mg Capsule PO ×3 (09:26→21:00)
[2020-04-11] MEDS: apixaban 5 mg Tablet PO ×2 (09:26→17:05)
[2020-04-11] MEDS: isosorbide mononitrate ER 30 mg Tablet PO (09:26)
[2020-04-11] MEDS: ezetimibe 10 mg Tablet PO (09:26)
[2020-04-11] MEDS: atorvastatin 40 mg Tablet 80 MG PO (09:26)
[2020-04-11] MEDS: finasteride 5 mg Tablet PO (09:26)
[2020-04-11] MEDS: amiodarone 200 mg Tablet PO (09:26)
[2020-04-11] MEDS: famotidine 20 mg/2 mL INJ IVP ×2 (09:27→21:01)
[2020-04-11] MEDS: zinc gluconate 50 mg Tablet PO (09:27)
[2020-04-11] MEDS: ascorbic acid 500 mg Tablet PO (09:27)
[2020-04-11] MEDS: multivitamin therapeutic Tablet 1 TAB PO (09:27)
--- NOTE | 2020-04-11 11:43 | P.PN_ITS ---
Subjective Subjective: Interval history: Events overnight. On examination patient is having his lunch. He states he is feeling a lot better. He states his energy levels are good. He is wondering when can he go home. He states his is also tested positive for COVID-19 pneumonia and is worried about her. On examination he is hemodynamically stable. Patient has remained afebrile. On ex amination he is on 5 L nasal cannula saturation 91%. He states his appetite is appropriate. He is getting up from bed going to bathroom. He is doing incentive spirometry occasionally. Vitals/I&O/Wt Last Vital Signs Temp 98.3 F 04/11/20 04:53 Pulse 70 04/11/20 10:37 Resp 17 04/11/20 10:37 BP 125/73 04/11/20 09:23 Pulse Ox 90 04/11/20 10:37 04/10/20 04/11/20 04/11/20 22:59 06:59 14:59 Intake Total 250 / 250 360 / 360 Output Total 790 / 790 175 / 965 Balance -540 / -540 -175 / -715 360 / 360 Weight last 48 hrs Weight 87.679 kg Weight 90.718 kg Physical Exam Narrative: EXAM NARRATIVE: General: No acute distress, AO x3, 91 percent on 5 L nasal cannula HEENT: PERRLA, pupils bilaterally equal and reactive Chest: Normal vesicular breath sounds, occasional rhonchi present all over the lung orozco, no added sounds, equal good air entry bilaterally CVS: S1-S2 regular, end diastolic murmur at the aortic area, no tachycardia, no gallops, no rubs Abdomen: Soft, nontender, no organomegaly, bowel sounds present Neuro: No focal deficits, no facial deformity, AO x3, power 5/5 in all limbs Data : 04/11/20 06:20 04/11/20 06:20 Micro: Microbiology 04/10/20 14:42 Blood Culture - Preliminary Blood SPECIMEN COLLECTED 04/10/20 20:45 Blood Culture - Preliminary Blood SPECIMEN COLLECTED A&P Assessment and plan (1) Hypoxia: Status: Acute (2) COVID-19 virus infection: Status: Acute (3) Pacemaker: Status: Acute (4) ASHD (arteriosclerotic heart disease): Status: Acute (5) Hypertension: Status: Acute Qualifiers: Hypertension type: essential hypertension Qualified Code(s): I10 - Essential (primary) hypertension (6) Hyperlipidemia: Status: Acute Qualifiers: Hyperlipidemia type: mixed hyperlipidemia Qualified Code(s): E78.2 - Mixed hyperlipidemia Additional A&P Information Acute hypoxic respiratory failure: Most likely because of COVID-19 pneumonia. Pulmonary medicine ruled out with CTA PE protocol. Procalcitonin negative. Chances of bacterial infection are low for now. Continue with Eliquis 5 mg twice daily. At least moderate disease as patient is requiring at least 2 to 4 L of oxygen supplementation to keep saturation over 90%. Given patient does not have any leukocytosis, fever bacterial pneumonia is unlikely. Pro-Jaren negative, MRSA swab, sputum culture results awaited. Continue levofloxacin 500 mg daily as per the creatinine clearance. CHF unlikely as patient seems euvolemic or at baseline fluid balance. Most r ecent echo done in January 2020 shows an EF of 50% with grade 1 diastolic dysfunction with mild to moderate AI. proBNP elevated as compared to yesterday. Patient required more oxygen than yesterday. We will restart on home dose of Lasix 40 mg daily. Strict input output charting. Daily weights. Depending on urine output and blood pressure will see if patient requires any more further diuresis today. Continue to monitor inflammatory markers daily. Monitor ferritin level, fibrinogen level, d-dimer level, CRP, LDH daily. Will check CTA chest to rule out PE and better visualization of consolidation. Continue with Remdesevir , dexamethasone 6 mg IV daily. Day 2/5 today. Continue with Advair, Spiriva. Continue with Tessalon Perles, vitamin C, zinc. Oxygen supplementation keeping saturation over 90%. CKD: Baseline creatinine 1.4-1.8. Creatinine better at the moment. We will avoid nephrotoxic drugs as patient is getting CTA PE done right now. We will continue to monitor BMP daily. Hypertension: Goal blood pressure less than 140/90 mmHg. Continue home dose of antihypertensive including Imdur. Patient's creatinine better than before but as patient is getting CTA PE will hold off lisinopril for now. CAD/PAD: Patient is chest pain-free. Continue home dose of Plavix, statin, History of ventricular tachycardia: Patient has an ICD. Continue home dose of amiodarone. HbA1c 6.1, iron panel results appreciated. We will start patient on oral iron supplementation. Continue other chronic medications. We will change medication as per the results of the blood work and clinical picture. Goals of care: Patient states he would not want any mechanical ventilation with intubation but is okay with chest compressions. Eliquis will also help with DVT prophylaxis. Protonix for PUD prophylaxis. Cardiac diet. Attestations Medical Necessity Statement*: Acute hypoxic respiratory failure because of [id number] pneumonia Time Spent in Patient Care: Greater than 35 minutes (>than 50% of time spent in counselling and/or direct pt care on unit) . 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
[2020-04-11] MEDS: FUROsemide 10 mg/mL SDV 4mL 40 MG IVP ×2 (12:16→16:06)
[2020-04-11] MEDS: ferrous gluconate 324 mg Tablet PO (17:05)
[2020-04-11 17:13] LABS: Quest SARS-CoV-2 RNA DETECTED (NOT DETECTED)
[2020-04-11 18:57] LABS: Add Urine Culture? No; Bacteria Urine TRACE /hpf; Bilirubin Urine Neg (Negative); Blood Urine Neg (Negative); Glucose Urine UA Norm (Normal); Ketones Urine Negative (Negative); Leukocyte Esterase Urine Negative (Negative); Mucus Urine TRACE /hpf; Nitrate Urine Negative (Negative); Protein Urine Neg (Negative); Squamous Epithelial Cell Urine 0-4 /hpf (0-5); Urine Appearance Clear (CLEAR); Urine Color Yellow (Yellow); Urobilinogen Urine Neg (Negative); pH Urine 6 (5-7)
[2020-04-12] VITALS (13 sets, daily range): BP systolic 104–140; BP diastolic 62–81; PULSE 60–78; RESP 16–26; TEMP 36.7–37.3; O2SAT 92–95; BMI 24.3
[2020-04-12] MEDS: levoFLOXacin 500 mg Tablet PO (05:53)
[2020-04-12 06:28] LABS: Fibrinogen 462 mg/dL (174-498)
[2020-04-12 06:31] LABS: D Dimer 1.64 ug/mIFEU (0-0.59)
[2020-04-12 06:49] LABS: C Reactive Protein 34.1 mg/L (0.0-4.9); Creatine Phosphokinase 164 U/L (39-308)
[2020-04-12 07:03] LABS: Ferritin 1735 ng/mL (30-400)
[2020-04-12 07:04] LABS: Lactate Dehydrogenase 425 U/L (135-225)
[2020-04-12] MEDS: finasteride 5 mg Tablet PO (09:17)
[2020-04-12] MEDS: ezetimibe 10 mg Tablet PO (09:17)
[2020-04-12] MEDS: isosorbide mononitrate ER 30 mg Tablet PO (09:17)
[2020-04-12] MEDS: amiodarone 200 mg Tablet PO (09:17)
[2020-04-12] MEDS: famotidine 20 mg/2 mL INJ IVP ×2 (09:17→21:35)
[2020-04-12] MEDS: benzonatate 100 mg Capsule PO ×3 (09:22→21:27)
[2020-04-12] MEDS: multivitamin therapeutic Tablet 1 TAB PO (09:23)
[2020-04-12] MEDS: atorvastatin 40 mg Tablet 80 MG PO (09:23)
[2020-04-12] MEDS: clopidogrel 75 mg Tablet PO (09:23)
[2020-04-12] MEDS: bisacodyl 5 mg Tablet 10 MG PO (09:23)
[2020-04-12] MEDS: apixaban 5 mg Tablet PO ×2 (09:23→17:06)
[2020-04-12] MEDS: ascorbic acid 500 mg Tablet PO (09:23)
[2020-04-12] MEDS: zinc gluconate 50 mg Tablet PO (09:24)
--- NOTE | 2020-04-12 09:36 | PC.NURSE ---
see first assessment
[2020-04-12] MEDS: ferrous gluconate 324 mg Tablet PO ×2 (09:42→17:06)
[2020-04-12] MEDS: FUROsemide 40 mg Tablet PO (12:18)
[2020-04-12 14:03] LABS: ABG PCO2 34.6 mmHg (35-45); ABG PH Result 7.44 (7.35-7.45); Alveolar-Arterial Oxygen Gradi 5.2 mmHg (5-10); Arterial Blood Gas Hematocrit 42.5 % (42-52); Base Excess ABG -0.3 mmol/L (-2.0-2.0); Blood Gas Allen Test Pos; Blood Gas Sample Site Radial, left; Blood Gas Sample Type Arterial; Carboxyhemoglobin 0.9 %THgb (0.4-20.1); HCO3 ABG 23.3 mmol/L (22-26); Ionized Calcium Level - ABG 1.1 mmol/L (1.1-1.4); Methemoglobin 0.6 % (0.4-1.5); Oxygen Device NC; Oxygen Saturation ABG 93.4; PO2 ABG 65.7 mmHg (80.0-100.0); Potassium Level - ABG 3.7 mmol/L (3.5-5.0); Total Hemoglobin 13.9 g/dL (14-18)
--- NOTE | 2020-04-12 15:11 | PC.NURSE ---
patient was on toilet when call light rang. went in and patient was on toilet with poop all over room and patient. patient is alert and oriented and no issues prior to this. when i asked patient why he didnt call me and he said because he didnt have enough time. i educated patient on the call light and importance to not get up without a nurse or tech in the room. patient did not have o2 on as well. cleaned/bathed patient and cleaned floor, chaanged sheets. notified housekeeping. mopped floors. got patient back in bed with oxygen and turned bed alarm on. vitals stable at this time.
--- NOTE | 2020-04-12 15:32 | PC.NURSE ---
no neuro change at this time.
--- NOTE | 2020-04-12 15:34 | PC.NURSE ---
catheter had been tugged on and some blood clots in urine came out and urine more pinkish. flushed with 20cc sterile NS. catheter line is now yellow urine and no clots. will continue to monitor.
[2020-04-12] MEDS: ALPRAZolam 0.25 mg Tablet PO (15:40)
--- NOTE | 2020-04-12 17:16 | P.PN_ITS ---
Subjective Subjective: Interval history: No acute events overnight. On examination patient feels a little weak today. States his energy levels and appetite are not good today. He is requiring more more oxygen supplementation to keep her saturation over 90%. Currently he is requiring heated high flow at 45 L 75% to maintain saturation 94%. Discussed in detail with patient regarding need of incentive spirometry and flutter valve. Also discussed regarding semiprone while resting in bed. Also discussed that unfortunately at [facility] we do not have plasma therapy which he might require if he requires more more oxygen supplementation. Also discussed that we do not have any bed capability of prone position if intubated or Flolan to prevent from intubation. Discussed the same with patient's . Have agreed for possible transfer if required. Vitals/I&O/Wt Last Vital Signs Temp 98.1 F 04/12/20 16:14 Pulse 69 04/12/20 16:14 Resp 23 H 04/12/20 16:14 BP 104/64 04/12/20 16:14 Pulse Ox 94 04/12/20 16:14 04/12/20 04/12/20 04/12/20 06:59 14:59 22:59 Intake Total 560 / 560 Output Total 1400 / 2400 Balance -1400 / -1210 560 / 560 Weight last 48 hrs Weight 81.391 kg Weight 87.679 kg Physical Exam Narrative: EXAM NARRATIVE: General: No acute distress, AO x3, 94% on 40 L 75 %, looking tired HEENT: PERRLA, pupils bilaterally equal and reactive Chest: Normal vesicular breath sounds, occasional rhonchi present all over the lung orozco, no added sounds, equal good air entry bilaterally CVS: S1-S2 regular, end diastolic murmur at the aortic area, no tachycardia, no gallops, no rubs Abdomen: Soft, nontender, no organomegaly, bowel sounds present Neuro: No focal deficits, no facial deformity, AO x3, power 5/5 in all limbs Urinary Catheter Management^: Gross: Cath Placed During This Visit: yes Reason for Continuing Indwelling Catheter: Accurate Measurement of Urinary Output in Critically Ill Patients Urinary Catheter Date of Insertion: 04/11/20 Urinary Catheter Time of Insertion: 16:09 Data : 04/11/20 06:20 04/11/20 06:20 Micro: Microbiology 04/11/20 16:17 Bacterial Antigens - Final Urine,Voided 04/11/20 16:17 Legionella Urinary Antigen - Final Urine,Voided 04/10/20 14:42 Blood Culture - Preliminary Blood NEGATIVE TO DATE 04/10/20 20:45 Blood Culture - Preliminary Blood NEGATIVE TO DATE 04/11/20 05:20 MRSA Culture - Final Nose A&P Assessment and plan (1) Hypoxia: Status: Acute (2) COVID-19 virus infection: Status: Acute (3) Pacemaker: Status: Acute (4) ASHD (arteriosclerotic heart disease): Status: Acute (5) Hypertension: Status: Acute Qualifiers: Hypertension type: essential hypertension Qualified Code(s): I10 - Essential (primary) hypertension (6) Hyperlipidemia: Status: Acute Qualifiers: Hyperlipidemia type: mixed hyperlipidemia Qualified Code(s): E78.2 - Mixed hyperlipidemia (7) ARDS (adult respiratory distress syndrome): Status: Acute Additional A&P Information ARDS: PF ratio on ABG today morning shows moderate ARDS with ratio 125. Acute hypoxic respiratory failure: Most likely because of COVID-19 pneumonia. Pulmonary medicine ruled out with CTA PE protocol. Procalcitonin negative. Chances of bacterial infection are low for now. Continue with Eliquis 5 mg twice daily. Moderate to severe COVID-19 pneumonia. Given patient does not have any leukocytosis, fever bacterial pneumonia is unl ikely. Pro-Jaren negative, MRSA swab, sputum culture results awaited. Continue levofloxacin 500 mg daily as per the creatinine clearance. CHF unlikely as patient seems euvolemic or at baseline fluid balance. Most recent echo done in January 2020 shows an EF of 50% with grade 1 diastolic dysfunction with mild to moderate AI. proBNP elevated as compared to yesterday. Patient required more oxygen than yesterday. Patient is overall 1.3 L negative. Continue with home dose of Lasix 40 mg daily. Strict input output charting. Daily weights. Depending on urine output and blood pressure will see if patient requires any more further diuresis today. Continue to monitor inflammatory markers daily. Monitor ferritin level, fibrinogen level, d-dimer level, CRP, LDH daily. Will check CTA chest to rule out PE and better visualization of consolidation. Continue with Remdesevir , dexamethasone 6 mg IV daily. Day 3/5 today. Continue with Advair, Spiriva. Continue with Tessalon Perles, vitamin C, zinc. Oxygen supplementation keeping saturation over 90%. CKD: Baseline creatinine 1.4-1.8. Creatinine better at the moment. We will avoid nephrotoxic drugs as patient is getting CTA PE done right now. We will continue to monitor BMP daily. Hypertension: Goal blood pressure less than 140/90 mmHg. Patient is off today. Hold off on Imdur and lisinopril for now. Keep mean pressures over 65 mmHg. CAD/PAD: Patient is chest pain-free. Continue home dose of Plavix, statin, History of ventricular tachycardia: Patient has an ICD. Continue home dose of amiodarone. HbA1c 6.1, iron panel results appreciated. We will start patient on oral iron supplementation. Continue other chronic medications. We will change medication as per the results of the blood work and clinical picture. Goals of care: Patient states he would not want any mechanical ventilation with intubation but is okay with chest compressions. Eliquis will also help with DVT prophylaxis. Protonix for PUD prophylaxis. Cardiac diet. 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
--- NOTE | 2020-04-12 17:51 | PC.NURSE ---
md dr armstrong contacted me to let me know he is wanting to transfer patient to [facility] but has not been accepted yet. stated he would let me know. he also contacted and she is in agreement. patient aware and in agreement as well. waiting on md/management to contact me once patient is accepted.
[2020-04-12] MEDS: piperacillin-tazobactam 3.375 GM in sodium chloride 0.9% (plus) 50 ML IV (18:14)
[2020-04-12] MEDS: FUROsemide 10 mg/mL SDV 4mL 40 MG IVP (18:19)
--- NOTE | 2020-04-12 18:28 | PC.NURSE ---
called me to notify that [facility] denied patient. md asked to ask patient if he would be ok with possibly transferring to [place]. pt stated yes. aware.
[2020-04-13] VITALS (14 sets, daily range): BP systolic 97–124; BP diastolic 47–76; PULSE 58–79; RESP 16–31; TEMP 36.4–37.1; O2SAT 88–97
[2020-04-13] MEDS: piperacillin-tazobactam 3.375 GM in sodium chloride 0.9% (plus) 50 ML IV ×3 (01:58→17:18)
[2020-04-13] MEDS: ALPRAZolam 0.25 mg Tablet PO ×2 (02:38→11:15)
[2020-04-13] MEDS: LORazepam 2 mg/mL INJ 1 mL 0.5 MG IVP (04:30)
[2020-04-13 05:13] LABS: ABG PCO2 42.6 mmHg (35-45); ABG PH Result 7.46 (7.35-7.45); Arterial Blood Gas Hematocrit 41.3 % (42-52); Base Excess ABG 5.9 mmol/L (-2.0-2.0); Blood Gas Allen Test Pos; Blood Gas Sample Site Brachial, left; Blood Gas Sample Type Arterial; HCO3 ABG 30.4 mmol/L (22-26); HGB O2 Sat 87.9 % (95-100); Ionized Calcium Level - ABG 1.1 mmol/L (1.1-1.4); Methemoglobin 0.6 % (0.4-1.5); Oxygen Device NC; Oxygen Saturation ABG 89.3; PO2 ABG 53.5 mmHg (80.0-100.0); Total Hemoglobin 13.5 g/dL (14-18)
[2020-04-13 05:19] LABS: Alveolar-Arterial Oxygen Gradi 60.6 mmHg (5-10)
[2020-04-13 05:41] LABS: Basophils % 0.1 %; Eosinophils % 0.1 %; Hemoglobin 12.3 g/dL (11.7-16.6); Lymphocytes # 0.7 10^3/uL (0.8-4.8); Lymphocytes % 8.9 %; Mean Corpuscular HGB Conc 33.2 g/dL (30.0-36.0); Mean Corpuscular Hemoglobin 32.4 pg (28.0-34.0); Mean Corpuscular Volume 97.4 fL (80-94); Mean Platelet Volume 9.3 fL (7.4-10.4); Monocytes # 0.4 10^3/uL (0.2-0.9); Monocytes % 4.9 %; Neutrophils % 84.8 %; Nucleated Red Blood Cells % 0 %; Platelet Count 265 10^3/cmm (130-400); Red Cell Distribution Width 14.2 % (12.1-15.1); White Blood Count 7.8 10^3/uL (4.0-10.0)
--- NOTE | 2020-04-13 06:00 | XR_ITS ---
WS: [id number] Portable AP upright chest, 04/13/2020 Clinical Data: covid Comparison: Portable chest, 04/10/2020. Findings: No nodules, masses or effusions are seen. The heart is normal. The pulmonary vascularity is not increased. No pneumonia or pneumothorax is seen. The left diaphragm is elevated. There is minima l bilateral patchy atelectasis over both diaphragms. There is a permanent pacemaker with wires ending in the heart and a generator overlying the right lateral chest. Monitor leads are on the chest wall. The aortic arch and descending aorta show tortuosity. XR/XR chest 1V portable [id number] Impression: 1. Bibasilar atelectasis with improvement in the left atelectasis. 2. Atherosclerosis.
[2020-04-13 06:07] LABS: Fibrinogen 502 mg/dL (174-498)
[2020-04-13 06:09] LABS: Creatine Phosphokinase 129 U/L (39-308); Lactate Dehydrogenase 357 U/L (135-225)
[2020-04-13 06:10] LABS: D Dimer 1.25 ug/mIFEU (0-0.59)
[2020-04-13 06:14] LABS: Procalcitonin 0.12 ng/mL (0-0.5)
--- NOTE | 2020-04-13 06:22 | PC.NURSE ---
Shift Events: Patient had very restless night. Patient is currently on Optiflow and he states that it is uncomfortable. Repositioned several times to maximize comfort. Physician notified about restlessness and insomnia; Ativan 0.5mg ordered for a one time only dose and patient is now resting quietly in bed. at bedside. Patient would prefer to be transferred to [facility] in [place] vs [facility]. Will have physician discuss this with him and code status. Due to increasing oxygen demands, patient is now on 40L and 90% FiO2. All other VSS. [facility] states that they should have a bed by this afternoon for patient and were updated on current VS.
[2020-04-13 06:26] LABS: Alanine Aminotransferase 116 U/L (0-41); Albumin Level 2.8 g/dL (3.5-5.2); Alkaline Phosphatase 54 IU/L (40-130); Anion Gap 14.1 (5-19); Aspartate Amino Transferase 70 U/L (0-40); Blood Urea Nitrogen 35 mg/dL (8-23); Calcium 7.7 mg/dL (8.5-10.5); Carbon Dioxide 29 mmol/L (22-29); Chloride 100 mmol/L (98-107); Ferritin 1391 ng/mL (30-400); Globulin 2.3 g/dL (1.3-4.6); Glucose 108 mg/dL (65-115); Osmolality Calculated 299 mOsm/kg (285-295); Potassium 3.1 mmol/L (3.5-5.1); Sodium 140 mmol/L (136-145); Total Bilirubin 0.8 mg/dL (0.15-1.2); Total Protein 5.1 g/dL (6.6-8.7)
--- NOTE | 2020-04-13 08:59 | PC.RESP ---
0755- Patient removed oxygen to eat. Saturations decreased. Replaced Heated high flow, however several moments passed and saturations had still not recovered. Increased settings to 55lpm and Fio2 to 100%. Sat improved.
[2020-04-13] MEDS: dexamethasone 4 mg/mL INJ 10 MG IVP (09:17)
[2020-04-13] MEDS: FUROsemide 10 mg/mL SDV 4mL 20 MG IVP (09:18)
[2020-04-13] MEDS: finasteride 5 mg Tablet PO (09:18)
[2020-04-13] MEDS: multivitamin therapeutic Tablet 1 TAB PO (09:18)
[2020-04-13] MEDS: zinc gluconate 50 mg Tablet PO (09:18)
[2020-04-13] MEDS: ascorbic acid 500 mg Tablet PO (09:19)
[2020-04-13] MEDS: apixaban 5 mg Tablet PO ×2 (09:19→17:19)
[2020-04-13] MEDS: amiodarone 200 mg Tablet PO (09:19)
[2020-04-13] MEDS: ezetimibe 10 mg Tablet PO (09:19)
[2020-04-13] MEDS: atorvastatin 40 mg Tablet 80 MG PO (09:19)
[2020-04-13] MEDS: benzonatate 100 mg Capsule PO ×2 (09:19→14:34)
[2020-04-13] MEDS: potassium chloride premix 40 MEQ/100 ML PREMIX 25 MEQ IV ×2 (09:19→11:49)
[2020-04-13] MEDS: clopidogrel 75 mg Tablet PO (09:19)
[2020-04-13] MEDS: famotidine 20 mg/2 mL INJ IVP (09:20)
[2020-04-13] MEDS: ferrous gluconate 324 mg Tablet PO ×2 (09:32→17:19)
--- NOTE | 2020-04-13 10:19 | PC.NURSE ---
md aware of increased oxygenation. asked if he wanted a repeat bnp. no reply. still on 1500ml restriction. lasix was ordered per md. i told him we are still waiting to hear from [facility] about transferring patient. will continue to closely monitor.
--- NOTE | 2020-04-13 10:54 | PC.NURSE ---
contacted md delgadonathaniel about pt status. pt stated he does want to be intubated if it comes to that. virgen and rt onel witnessed response. we are now placing pt on bipap. was made aware.
--- NOTE | 2020-04-13 14:06 | P.PN_ITS ---
Subjective Subjective: Interval history: Patient remains critically ill. He is requiring more oxygen supplementation to keep saturation over 90%. Currently he is on 75% 50 L. During my examination we transitioned him over to BiPAP. On BiPAP he is maintaining saturation over 92% and is comfortable. Patient's is at bedside. We discussed in detail regarding his health. Discussed regarding severely guarded prognosis. Discussed regarding CODE STATUS. He states he would want intubation only if there is any hope. He states he would be okay with intubation but no prolonged ventilator. CODE STATUS has been changed. Labs and vitals noted. Discussed both with patient, and nurse regarding prone position. Vitals/I&O/Wt Last Vital Signs Temp 98.8 F 04/13/20 12:10 Pulse 66 04/13/20 13:57 Resp 22 H 04/13/20 12:10 BP 117/74 04/13/20 12:10 Pulse Ox 97 04/13/20 13:57 04/12/20 04/13/20 04/13/20 22:59 06:59 14:59 Intake Total 710 / 1270 120 / 1390 470 / 470 Output Total 3000 / 3000 520 / 3520 Balance -2290 / -1730 -400 / -2130 470 / 470 Weight last 48 hrs Weight 83.28 kg Weight 81.391 kg Physical Exam Narrative: EXAM NARRATIVE: General: No acute distress, AO x3, BiPAP ventilation, looking tired HEENT: PERRLA, pupils bilaterally equal and reactive Chest: Normal vesicular breath sounds, occasional rhonchi present all over the lung orozco, no added sounds, equal good air entry bilaterally CVS: S1-S2 regular, end diastolic murmur at the aortic area, no tachycardia, no gallops, no rubs Abdomen: Soft, nontender, no organomegaly, bowel sounds present Neuro: No focal deficits, no facial deformity, AO x3, power 5/5 in all limbs Urinary Catheter Management^: Gross: Cath Placed During This Visit: yes Reason for Continuing Indwelling Catheter: Accurate Measurement of Urinary Output in Critically Ill Patients Urinary Catheter Date of Insertion: 04/11/20 Urinary Catheter Time of Insertion: 16:09 Data : 04/13/20 04:30 04/13/20 04:30 Other Labs: D-dimer 1.25 from 1.64 Fibrinogen 502 from 462 Ferritin 1391 from 1735 AST/ALT 70/1 1 6 from 126/174 LDH 375 from 425 CRP 43 from 34.1 Procalcitonin 0.12 A&P Assessment and plan (1) Hypoxia: Status: Acute (2) COVID-19 virus infection: Status: Acute (3) Pacemaker: Status: Acute (4) ASHD (arteriosclerotic heart disease): Status: Acute (5) Hypertension: Status: Acute Qualifiers: Hypertension type: essential hypertension Qualified Code(s): I10 - Essential (primary) hypertension (6) Hyperlipidemia: Status: Acute Qualifiers: Hyperlipidemia type: mixed hyperlipidemia Qualified Code(s): E78.2 - Mixed hyperlipidemia (7) ARDS (adult respiratory distress syndrome): Status: Acute Additional A&P Information ARDS: Worsening. PF ratio worsening. Continue BiPAP ventilation for now. Will try to maintain saturation over 90%. Patient is full code now. Will try to avoid intubation because that worsens prognosis with COVID-19. Acute hypoxic respiratory failure: Most likely because of COVID-19 pneumonia. Pulmonary embolism ruled out on CTA on admission. Procalcitonin continues to remain negative. Chances of active infection are low. Chest x-ray appreciated. Continue with Eliquis 5 mg twice daily. Moderate to severe COVID-19 pneumonia. Given patient does not have any leukocytosis, fever bacterial pneumonia is unlikely. Pro-Jaren negative, MRSA swab, sputum culture results awaited. For now we will switch Levaquin to Zosyn. MRSA negative. We will request for sputum culture. CHF unlikely as patient seems euvolemic or at baseline fluid balance. Most recent echo done in January 2020 shows an EF of 50% with grade 1 diastolic dysfunction with mild to moderate AI. proBNP elevated as compared to yesterday. Patient required more oxygen than yesterday. Patient overall is low. Creatinine worsened to 1.3 today. Overall patient of 3.5 L negative. Stop Lasix for now. Continue to monitor fluid status. Daily weights. Depending on urine output and blood pressure will see if patient requires any more further diuresis today. Continue to monitor inflammatory markers daily. Monitor ferritin level, fibrinogen level, d-dimer level, CRP, LDH daily. Will check CTA chest to rule out PE and better visualization of consolidation. Continue with Remdesevir , dexamethasone 6 mg IV daily. Day 4/5 today. As patient is worsening we will give Decadron 10 mg today. Continue with Advair, Spiriva. Continue with Tessalon Perles, vitamin C, zinc. Oxygen supplementation keeping saturation over 90%. CKD: Baseline creatinine 1.4-1.8. Creatinine better at the moment. We will avoid nephrotoxic drugs as patient is getting CTA PE done right now. We will continue to monitor BMP daily. Hypertension: Goal blood pressure less than 140/90 mmHg. Blood pressure soft today. Continue to hold off on lisinopril and Imdur for now . Keep mean pressures over 65 mmHg. CAD/PAD: Patient is chest pain-free. Continue home dose of Plavix, statin, History of ventricular tachycardia: Patient has an ICD. Continue home dose of amiodarone. HbA1c 6.1, iron panel results appreciated. We will start patient on oral iron supplementation. Continue other chronic medications. We will change medication as per the results of the blood work and clinical picture. Goals of care: Discussed goals of care and CODE STATUS in detail with patient and patient's again today. He states he would want to be intubated if if it would help but would not want to be intubated for a long time. CODE STATUS change in the system. Eliquis will also help with DVT prophylaxis. Protonix for PUD prophylaxis. Cardiac diet. Severely guarded prognosis. Patient was not accepted at [facility]. Patient has been accepted at [facility] but we are awaiting bed. Once bed is available we will transfer patient. 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
[2020-04-13 14:49] LABS: NT Pro B Type Natriuretic Pept 1425 pg/mL (0-450)
--- NOTE | 2020-04-13 16:09 | DCPLANNER ---
Pg 2 of IM explained to Pt's Spouse; Rosina lockett as Addis - [phone]. She states that she understands it. Lead Pony Rider encourages her to call should she have questions and we will update the message again in a couple of days.
--- NOTE | 2020-04-13 16:42 | PC.NURSE ---
patient refused the rest of potassium bag. md mendez notified. no orders given. also contacted [facility] and asked if were getting bank operations officer waitlist. [facility] stated there is still no bed. notified .
--- NOTE | 2020-04-13 20:11 | PM.TDS ---
Transfer Summary Providers Date of Admission: 04/10/20 17:45 Date of Discharge: 04/14/20 Attending Provider at Admission: Alex Dhaliwal MD Attending Provider at Transfer: Alex Dhaliwal MD Primary Care Provider: Bashir Rosales MD Anticipated Date of Transfer: Anticipated date of transfer: 04/14/20 Receiving Facility & Provider: Receiving Provider: [] Receiving facility: [[facility]] Diagnoses at Discharge Discharge Diagnosis (1) ARDS (adult respiratory distress syndrome): Status: Acute (2) Hypoxia: Status: Acute (3) COVID-19 virus infection: Status: Acute (4) Pacemaker: Status: Acute (5) ASHD (arteriosclerotic heart disease): Status: Acute (6) Hypertension: Status: Acute Qualifiers: Hypertension type: essential hypertension Qualified Code(s): I10 - Essential (primary) hypertension (7) Hyperlipidemia: Status: Acute Qualifiers: Hyperlipidemia type: mixed hyperlipidemia Qualified Code(s): E78.2 - Mixed hyperlipidemia Reason for Visit Reason for Visit: DIARRHEA, COVID + Hospital Course Discharge Summary: Urbano Hernandez JR is a 84 year old male with past medical history of hypertension, ICD for ventricular tachycardia/syncope, CAD, PAD, post fem-pop bypass, popliteal artery aneurysm, thoracic artery aneurysm who presented to the ER because of 2 episodes of diarrhea since today morning, cough with difficulty in breathing since last night and feeling weak for last 1 day. In the ER COVID rapid antigen was positive. On evaluation patient states he was tested for COVID-19 around 10 days ago in his PCPs office and was positive. At that time patient has been having sore throat, runny nose, myalgias for 1 week. Patient is not having those symptoms anymore. Patient was at his baseline health till yesterday when he started having above symptoms. On presentation to the ER patient was saturating in mid 80s on room air so was put on 3 L nasal cannula and presently saturating 94%. He denies of having any nausea, vomiting, chest pain, palpitations, headache, dizziness. He does complain of mild loss of sense of sense of smell. He had one episode of diarrhea today morning which was nonbloody, not foul-smelling. Blood work in the ER showed a white count of 6.2, hemoglobin of 13.1, platelet of 212, d-dimer of 1.74, sodium of 135, chloride of 99, creatinine of 1.3 with baseline creatinine running from 1.6-1.8, AST/ALT of 167/199. Patient was admitted to the viral ICU and started on antiviral treatment along with IV steroids, nebulizer vitamin C and zinc and anticoagulation. Unfortunately patient required more and more oxygen supplementation to keep her saturation over 90%. He was requiring 100% BiPAP ventilation. Multiple goals of care discussion was done with the patient and patient's and he remained full code with trial of intubation if required. Because of worsening respiratory status transfer to a tertiary center was sought for treatment with Flolan, possible ECMO if required, plasma therapy to prevent patient from going on ventilator. Patient was declined from [facility] but was graciously accepted at [facility] [place] in [place]. Both patient and patient's has accepted the transfer. Patient is been transferred in critically stable condition on BiPAP via Air-Evac for further management. Physical Exam Narrative: EXAM NARRATIVE: General: No acute distress, AO x3, BiPAP ventilation, looking tired HEENT: PERRLA, pupils bilaterally equal and reactive Chest: Normal vesicular breath sounds, occasional rhonchi present all over the lung orozco, no added sounds, equal good air entry bilaterally CVS: S1-S2 regular, end diastolic murmur at the aortic area, no tachycardia, no gallops, no rubs Abdomen: Soft, nontender, no organomegaly, bowel sounds present Neuro: No focal deficits, no facial deformity, AO x3, power 5/5 in all limbs Urinary Catheter Management^: Gross: Cath Placed During This Visit: yes Reason for Continuing Indwelling Catheter: Accurate Measurement of Urinary Output in Critically Ill Patients Urinary Catheter Date of Insertion: 04/11/20 Urinary Catheter Time of Insertion: 16:09 TS Data Data Completed and Pending: Completed Studies During Hospitalization Category Date Time Status CT angio chest PE protcl [id number] Stat Cat Scan 04/10/20 16:02 Completed XR chest 1V lupe ble 12225 Q48H Exams 04/13/20 06:00 Completed XR chest 1V lupe ble [id number] Stat Exams 04/10/20 14:19 Completed Pending at discharge Category Date Time Status Blood Culture Sta t Lab 04/10/20 14:42 Results Labs from last 24 hours 04/13/20 04/13/20 04/13/20 04:42 04:30 04:30 WBC 7.8 RBC 3.80 L Hgb 12.3 Hct 37.0 L MCV 97.4 H MCH 32.4 MCHC 33.2 RDW 14.2 Plt Count 265 MPV 9.3 Neut % (Auto) 84.8 Lymph % (Auto) 8.9 [place] % (Auto) 4.9 Eos % (Auto) 0.1 Baso % (Auto) 0.1 Neut # (Auto) 6.60 Lymph # (Auto) 0.7 L [place] # (Auto) 0.4 Eos # (Auto) 0.0 Baso # (Auto) 0.0 Nucleated RBC % (a uto) 0 Nucleated RBCs # 0.0 Fibrinogen D-Dimer Specimen Type Arterial Sample Site Brachial, left ABG pH 7.46 H ABG pCO2 42.6 ABG pO2 53.5 L ABG HCO3 30.4 H ABG O2 Saturation 89.3 ABG Base Excess 5.9 H Evans Test Pos A-a O2 Gradient 60.6 H Hematocrit 41.3 L Hgb O2 Saturation 87.9 L Carboxyhemoglobin 1.0 Methemoglobin 0.6 Total Hemoglobin 13.5 L Ionized Calcium 1.1 O2 Delivery Device Nc O2 Liters/Min 40.0 FiO2 80.0 Director Of Sustainability Programs ID [id number] Sodium 139.0 Potassium 3.0 L Chloride Carbon Dioxide Anion Gap BUN Creatinine GFR Calculation Glucose 108.0 Calculated Osmolal ity Calcium Ferritin Total Bilirubin AST ALT Alkaline Phosphata se Lactate Dehydrogen ase Creatine Kinase C-Reactive Protein NT-Pro-B Natriuret Pep 1425 H Total Protein Albumin Globulin Procalcitonin 04/13/20 04/13/20 04/13/20 04:30 04:30 04:30 WBC RBC Hgb Hct MCV MCH MCHC RDW Plt Count MPV Neut % (Auto) Lymph % (Auto) [place] % (Auto) Eos % (Auto) Baso % (Auto) Neut # (Auto) Lymph # (Auto) [place] # (Auto) Eos # (Auto) Baso # (Auto) Nucleated RBC % (a uto) Nucleated RBCs # Fibrinogen 502 H D-Dimer 1.25 H Specimen Type Sample Site ABG pH ABG pCO2 ABG pO2 ABG HCO3 ABG O2 Saturation ABG Base Excess Evans Test A-a O2 Gradient Hematocrit Hgb O2 Saturation Carboxyhemoglobin Methemoglobin Total Hemoglobin Ionized Calcium O2 Delivery Device O2 Liters/Min FiO2 Director Of Sustainability Programs ID Sodium 140 Potassium 3.1 L Chloride 100 Carbon Dioxide 29 Anion Gap 14.1 BUN 35 H Creatinine 1.3 H GFR Calculation Not Reportable Glucose 108 Calculated Osmolal ity 299 H Calcium 7.7 L Ferritin 1391 H Total Bilirubin 0.8 AST 70 H ALT 116 H Alkaline Phosphata se 54 Lactate Dehydrogen ase 357 H Creatine Kinase 129 C-Reactive Protein 43.0 H NT-Pro-B Natriuret Pep Total Protein 5.1 L Albumin 2.8 L Globulin 2.3 Procalcitonin 0.12 Vitals: Last Vital Signs Temp 97.9 F 04/13/20 19:11 Pulse 74 04/13/20 19:11 Resp 22 H 04/13/20 19:11 BP 112/76 04/13/20 19:11 Pulse Ox 92 04/13/20 19:11 TS Medications Medications Home Medications potassium chloride 20 mEq tablet,extended release 20 meq PO DAILY #90 tab 10/04/19 [Rx Confirmed 04/10/20] isosorbide mononitrate 30 mg tablet,extended release 24 hr 30 mg PO DAILY 90 Days #90 tab 11/01/19 [Rx Confirmed 04/10/20] finasteride 5 mg tablet 5 mg PO DAILY #90 tab 11/02/19 [Rx Confirmed 04/10/20] furosemide 40 mg tablet 40 mg PO DAILY 01/03/20 [History Confirmed 04/10/20] ezetimibe 10 mg tablet 10 mg PO DAILY #90 tab 02/08/20 [Rx Confirmed 04/10/20] cetirizine 10 mg tablet 10 mg PO DAILY PRN tab 02/22/20 [History Confirmed 04/10/20] docusate sodium 100 mg capsule 100 mg PO DAILY PRN 02/22/20 [History Confirmed 04/10/20] magnesium oxide 500 mg capsule 500 mg PO BID 02/22/20 [History Confirmed 04/10/20] multivitamin 1 tab PO DAILY 02/22/20 [History Confirmed 04/10/20] nitroglycerin 0.4 mg sublingual tablet 0.4 mg SUBLINGUAL Q5M PRN 02/22/20 [History Confirmed 04/10/20] polyethylene glycol 3350 17 gram/dose oral powder 17 gm PO DAILY PRN 02/22/20 [History Confirmed 04/10/20] rosuvastatin 20 mg tablet 20 mg PO DAILY 02/22/20 [History Confirmed 04/10/20] silodosin 8 mg capsule 8 mg PO .COMPLEX 02/22/20 [History Confirmed 04/10/20] lisinopril 10 mg tablet 10 mg PO DAILY 30 Days #30 tab 03/15/20 [Rx Confirmed 04/10/20] amiodarone 200 mg PO DAILY 04/10/20 [History Confirmed 04/10/20] clopidogrel 75 mg PO DAILY 04/10/20 [History Confirmed 04/10/20] flunisolide 2 spray INTRANASAL BID PRN 04/10/20 [History Confirmed 04/10/20] Discharge Plan Discharge Patient Disposition: Home Condition: Stable Prescriptions: No Action multivitamin Tablet 1 tab PO DAILY RF: 0 cetirizine [Zyrtec] 10 mg tablet 10 mg PO DAILY PRN (Reason: Allergy Symptoms) RF: 0 nitroglycerin [Nitrostat] 0.4 mg tablet, sublingual 0.4 mg SUBLINGUAL Q5M PRN (Reason: Chest Pain) RF: 0 docusate sodium 100 mg capsule 100 mg PO DAILY PRN (Reason: Constipation) RF: 0 polyethylene glycol 3350 [Miralax] 17 gram/dose powder 17 gm PO DAILY PRN (Reason: Constipation) RF: 0 rosuvastatin [Crestor] 20 mg tablet 20 mg PO DAILY RF: 0 magnesium oxide 500 mg capsule 500 mg PO BID RF: 0 silodosin [Rapaflo] 8 mg capsule 8 mg PO .COMPLEX RF: 0 furosemide 40 mg tablet 40 mg PO DAILY RF: 0 potassium chloride 20 mEq tablet extended release 20 meq PO DAILY Qty: 90 RF: 3 isosorbide mononitrate 30 mg tablet extended release 24 hr 30 mg PO DAILY 90 Days Qty: 90 RF: 3 finasteride 5 mg tablet 5 mg PO DAILY Qty: 90 RF: 3 ezetimibe 10 mg tablet 10 mg PO DAILY Qty: 90 RF: 0 lisinopril 10 mg tablet 10 mg PO DAILY 30 Days Qty: 30 RF: 5 amiodarone 200 mg tablet 200 mg PO DAILY RF: 0 clopidogrel 75 mg tablet 75 mg PO DAILY RF: 0 flunisolide 25 mcg (0.025 %) [place],Non-Aerosol 2 spray INTRANASAL BID PRN (Reason: Nasal Congestion) RF: 0 Discharge Orders: Transfer Out of Facility (Order); Ordered 04/13/20 Ordered By: Alex Dhaliwal Referrals: Bashir Rosales MD [Primary Care Provider] - Discharge Date/Time: 04/13/20 19:20 Transfer Attestations Time Spent in Transfer Care*: critical care time Critical Care Time (min): 60 Status at Transfer: Cognitive status at transfer: cognitively intact, Behavioral status at transfer: cooperative, Functional status at transfer: bed bound Overall status at transfer: patient is not back to baseline Quality Metrics Clinical Quality Measures: During this hospital stay, did patient experience: None Coding Level of Care Code Acute Tax Analyst for g Fwd Diagnoses ARDS (adult respiratory distress syndrome) J80 Hypoxia R09.02 COVID-19 virus infection U07.1 Pacemaker Z95.0 ASHD (arteriosclerotic heart disease) I25.10 Hypertension I10 Hypertension type: essential hypertension Hyperlipidemia E78.2 Hyperlipidemia type: mixed hyperlipidemia
--- NOTE | 2020-04-25 14:52 | PC.SOCIAL ---
Attempted to call house phone and cell phone and received no answer and no voicemail available. Attempted to Call [facility] to confirm if he was still there, they stated that he was not in the system, I was then transferred to Medical records, left a voicemail for someone to call me back with confirmation of DC date.
--- NOTE | 2020-04-25 15:17 | PC.SOCIAL ---
[facility] records called back and stated that it was [facility] that had the patient not their facility. I called [facility] and they stated that he is still currently there.
== END 2020-04-13 19:20 | disposition short-term general hospital (02) | DRG 177 ==
LOC: ER 17:15 → ICU 18:09
PROVIDERS: Admitting Provider Student in an Organized Health Care Education/Training Program; Emergency Provider Family Medicine; PCP Family Medicine; Visit Provider Student in an Organized Health Care Education/Training Program
DX: U07.1 COVID-19 (principal); J12.89 Other viral pneumonia; J96.01 Acute respiratory failure with hypoxia; I12.9 Hypertensive chronic kidney disease with stage 1 through stage 4 chronic kidney disease, or unspecified chronic kidney disease; N18.9 Chronic kidney disease, unspecified; Z95.810 Presence of automatic (implantable) cardiac defibrillator; I25.10 Atherosclerotic heart disease of native coronary artery without angina pectoris; I73.9 Peripheral vascular disease, unspecified; Z98.890 Other specified postprocedural states; I71.2 Thoracic aortic aneurysm, without rupture; M19.90 Unspecified osteoarthritis, unspecified site; N40.1 Benign prostatic hyperplasia with lower urinary tract symptoms; G89.29 Other chronic pain; M54.9 Dorsalgia, unspecified; E78.2 Mixed hyperlipidemia; Z79.02 Long term (current) use of antithrombotics/antiplatelets
CPT/HCPCS: 12345; 36415; 36600; 51702; 71045; 71275; 80051; 80053; 80061; 81001; 82550; 82728; 82810; 83036; 83540; 83550; 83605; 83615; 83880; 83986; 84145; 84443; 85025; 85378; 85384; 86140; 86403; 87040; 87426; 87449; 87635; 87641; 94640; 94660; 96375; 99283; J0610; J1100; J1940; J2060; J2543; J3480; J3490; Q9967

== ENCOUNTER 2020-06-01 11:49 | Outpatient (CLI) | payer MEDICARE, BC, SELFPAY ==
[2020-06-01 12:36] LABS: Anion Gap 11.1 (5-19); Blood Urea Nitrogen 18 mg/dL (8-23); Calcium 8.4 mg/dL (8.5-10.5); Carbon Dioxide 30 mmol/L (22-29); Chloride 100 mmol/L (98-107); Glucose 114 mg/dL (65-115); Osmolality Calculated 287 mOsm/kg (285-295); Potassium 4.1 mmol/L (3.5-5.1); Sodium 137 mmol/L (136-145)
== END 2020-06-01 11:50 | disposition home or self-care (01) ==
LOC: LAB 11:54
PROVIDERS: PCP Family Medicine; Visit Provider Family Medicine
DX: U07.1 COVID-19 (principal)
CPT/HCPCS: 80048

== ENCOUNTER 2020-08-04 09:25 | Outpatient (CLI) | payer MEDICARE, BC, SELFPAY ==
--- NOTE | 2020-08-04 09:30 | USCV_ITS ---
Urbano Hernandez Age: 84 Gender: M : 1935 Exam Date: 08/04/2020 09:27 Ordering Phys: Fadi Padron MD ([email or web address]) Technologist: Violet Jamison Exam Location: [facility] Indication: AAA HISTORY: Diameter (cm) AP x Transverse x Length Velocity (cm/s) Waveform Prox Aorta: 3.17 x 3.91 x 204.40 Mid Aorta: 2.15 x 2.88 x 80.50 Distal Aorta: 2.47 x 3.38 x 72.20 Right Iliac Prox: 1.43 x 1.84 x 82.80 Left Iliac Prox: 2.03 x 2.52 x 50.90 Stent Prox Landing x x Aneurysmal Sac Max x x Lt Lat Sac Dim Rt Lat Sac Dim Stent Dist Landing x x Right Iliac Stent x x Left Iliac Stent x x Right Renal Art Left Renal Art FINDINGS: Fusiform dilatation of the proximal and distal abdominal aorta measuring 3.17 x 3.9 and 2.47 x 3.38 respectively Mild to moderate diffuse plaques in the abdominal aorta. Dilated left proximal iliac artery, measuring 2.03 x 2.52 cm Left proximal common iliac artery measures 1.43 x 1.84 cm CONCLUSIONS 1. 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 2. 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 Dilated right proximal common iliac artery measuring 1.43 x 1.84 cm 4. Elevated velocity in the proximal abdominal aorta may suggest hemodynamically significant stenosis Consider CTA of the abdomen aorta with runoff, to better evaluate the above-mentioned arteries Compared to the study from 04/03/2015, the left proximal iliac artery appears to have significantly increased in size Dr Fadi Padron MD [facility] (Electronically Signed) Final Date: 04 August 2020 18:11 S
== END 2020-08-04 09:26 | disposition home or self-care (01) ==
LOC: US 09:27
PROVIDERS: PCP Family Medicine; Visit Provider Internal Medicine Cardiovascular Disease
DX: I71.4 Abdominal aortic aneurysm, without rupture (principal)
CPT/HCPCS: 93978

== ENCOUNTER 2020-08-18 10:28 | Outpatient (CLI) | payer MEDICARE, BC, SELFPAY ==
--- NOTE | 2020-08-18 11:00 | CT_ITS ---
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 MIP and volume rendering imaging has also been performed. All images are reviewed. All C T scans at [facility] use at least one of these dose optimization techniques: automated ex posure control; mA and/or kV adjustment per patient size (includes targeted exams where dose is match ed to clinical indication); or iterative reconstruction. Contrast: Visipaque 320; 95 mL IV. DLP: 3564.82 mGy.cm COMPARISON: 07/19/2019 and 12/17/2018 Moderately enlarged heart. Pacer wires within the RIGHT heart causing significant artifact. Chronic e mphysematous changes with scarring and fibrosis at the lung bases. There is mild honeycombing at the lung bases. Elevation of the LEFT hemidiaphragm with adjacent compressive atelectasis. Prior cholecystectomy. Very mild central bile duct dilatation is probably physiologic. No liver lesio ns. Normal size spleen. Fatty replacement of the pancreas. Normal adrenal glands. Mild bilateral kurt ical atrophy within each kidney. No solid mass or obstruction. No ascites. Moderate diffuse constipat ion. Abdominal aorta: Tortuosity and extensive atherosclerotic plaque within the abdominal aorta. There is tortuosity but no significant dilatation to the level of the bifurcation. 50% stenosis involving the origin of the celiac axis. Calcified plaque without significant stenosis involving the origin of the SMA. Heavy calcification involving the origins of the renal arteries bilaterally. Kidneys are being perfused adequately but there is probably at least 50% stenosis. RIGHT lower extremity arterial system: Mild aneurysmal dilatation of the proximal RIGHT common iliac artery 2.1 cm which is stable. Mild atherosclerotic plaque throughout the external iliac artery throu gh the superficial femoral artery. There is intimal thickening and calcified plaque at the stenosis d oes not appear greater than 50%. At [place]'s canal calcification becomes slightly more dense. Dense c alcification in the popliteal artery. Heavily calcified arteries below the knee. Due to the calcified plaque in the increased density is difficult to determine if there is contrast extending below the k nee. There is only intermittent visualization of the anterior and peroneal arteries. Slightly better opacification of the posterior tibial artery. LEFT lower extremity system: Mild dilatation of the proximal LEFT common iliac artery to 1.8 cm. Heav y calcification throughout. LEFT internal iliac artery is mildly aneurysmal at 1.6 cm. There is calci fied plaque and intimal thickening through the LEFT femoral and superficial femoral arteries. Stenosi s near 50% at [place]'s canal. There are collateral vessels near [place]'s canal and plaque becomes cir cumferential through the popliteal artery. There is aneurysmal dilatation of the superficial femoral artery at [place]'s canal measuring 1.6 cm. Artery returns to normal caliber. Additional aneurysm invo lving the popliteal artery 3.6 cm. 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 N o change in the aneurysm at [place]'s canal. There are collateral vessels feeding into the popliteal a neurysm. Heavy calcified plaque within the arteries below the knee. Poor runoff to the ankle. Anterio r tibial artery is heavily calcified but provides the most arterial supply to the ankle. Defect in the RIGHT patella may be from an old fracture or bipartite deformity. Muscle atrophy to the pelvis. Prostate gland is significantly enlarged encroaching into the urinary bladder. Mild diffuse bladder w all hypertrophy. CT/CT angio abd aorta runof [id number] IMPRESSION: 1. Severe atherosclerosis throughout the abdominal aorta throughout the runoff . 2. Stable small bilateral common iliac artery aneurysms. 3. Slight increase in size of the LEFT popliteal artery aneurysm from 3.2 to 3 .6 cm. 4. 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 5. Poor runoff to the ankle below the knees bilaterally. 6. Moderate stenosis involving the proximal renal arteries bilaterally.
[2020-08-18 11:23] LABS: Blood Urea Nitrogen 25 mg/dL (8-23)
[2020-08-18] MEDS: iodixanol 320 mg/mL 100mL Btl IV (12:01)
== END 2020-08-18 10:29 | disposition home or self-care (01) ==
LOC: CT 10:28
PROVIDERS: PCP Family Medicine; Visit Provider Internal Medicine Cardiovascular Disease
DX: I72.3 Aneurysm of iliac artery (principal); I71.9 Aortic aneurysm of unspecified site, without rupture; Z01.812 Encounter for preprocedural laboratory examination
CPT/HCPCS: 36415; 75635; 82565; 84520

== ENCOUNTER → 2020-09-28 11:39 | Outpatient (BNVA) | payer MEDICARE, BC, SELFPAY | PROVIDERS: PCP Family Medicine; Visit Provider Internal Medicine Cardiovascular Disease | DX: I25.10 Atherosclerotic heart disease of native coronary artery without angina pectoris (principal) | CPT/HCPCS: 80048; 83880 ==

== ENCOUNTER → 2020-10-27 11:53 | Outpatient (BNVA) | payer MEDICARE, BC, SELFPAY | PROVIDERS: PCP Family Medicine; Visit Provider Internal Medicine Critical Care Medicine | DX: Z01.812 Encounter for preprocedural laboratory examination (principal); Z20.822 Contact with and (suspected) exposure to COVID-19 | CPT/HCPCS: 87635 ==

== ENCOUNTER 2020-11-02 10:09 | Outpatient (CLI) | payer MEDICARE, BC, SELFPAY ==
--- NOTE | 2020-11-02 10:37 | PFTS_ITS ---
Date of Study:11/02/20 Date of Dictation: MECHANICS: Forced vital capacity (FVC) is reduced. Forced expiratory volume in one second (FEV1) is reduced. FEV1/FVC is reduced. FLOW VOLUME LOOP: Reduced flow at all lung volumes with scooping. LUNG VOLUMES: Lung volumes are not measured DIFFUSING CAPACITY FOR CARBON MONOXIDE: Severely reduced INTERPRETATION: The prebronchodilator spirometry is consistent with moderate obstruction. Component of restriction cannot be ruled out in the absence of lung volume measurements. Gas exchange (DLCO) is severely reduced. MTDD
== END 2020-11-02 10:10 | disposition home or self-care (01) ==
LOC: RT 10:09
PROVIDERS: PCP Family Medicine; Visit Provider Internal Medicine Critical Care Medicine
DX: J43.9 Emphysema, unspecified (principal)
CPT/HCPCS: 80048; 83880; 94010; 94729

== ENCOUNTER 2020-12-08 10:41 | Outpatient (CLI) | payer MEDICARE, BC, SELFPAY ==
--- NOTE | 2020-12-08 10:46 | XR_ITS ---
WS: [id number] PROCEDURE: XR chest 2V* [id number] CLINICAL INFORMATION: Shortness of breath COMPARISON: September 20, 2020 FINDINGS: Heart: Cardiomegaly. Aortic calcification. AICD. Lungs: Moderate chronic emphysematous changes. Elevation left hemidiaphragm with colonic interpositio n. Slight atelectasis/fibrosis right lower lobe unchanged from previous. Bones: Normal visualized bony structures. XR/XR chest 2V* [id number] IMPRESSION: 1. Cardiomegaly with AICD. 2. Chronic elevation left hemidiaphragm unchanged. 3. Moderate chronic emphysematous changes. Slight atelectasis or fibrosis righ t lower lobe unchanged. 4. No new infiltrates
== END 2020-12-08 10:42 | disposition home or self-care (01) ==
PROVIDERS: PCP Family Medicine; Visit Provider Internal Medicine Critical Care Medicine
DX: J44.9 Chronic obstructive pulmonary disease, unspecified (principal)
CPT/HCPCS: 71046

== ENCOUNTER 2020-12-22 10:00 | Emergency (ER) | payer MEDICARE, BC, SELFPAY ==
[2020-12-22 10:08] VITALS: BP 138/67; PULSE 61; RESP 15; TEMP 36.7; O2SAT 89; BMI 23.8
--- NOTE | 2020-12-22 10:13 | XR_ITS ---
WS: [id number] Right hip, 2 views, AP pelvis, 12/22/2020 Clinical Data: pain after fall Comparison: Right thigh and femur, 05/13/2011. Findings: No fractures or dislocations are seen. The right hip joint is intact. The soft tissues are not remark able. The adjacent pelvis is normal. The left hip is unremarkable. The SI joints and pubic symphysis are normal. There is degenerative sandy nge of the lower lumbar vertebral bodies. XR/XR hip RT 2-3V wo/w pel* [id number] Impression: 1. Negative right hip. 2. Negative pelvis and left hip. Tonnis classification: grade 0: normal radiographs
--- NOTE | 2020-12-22 10:15 | ECG_ITS ---
[facility] Test Date: 2020-12-22 Pat Name: Urbano Hernandez Department: Room: Gender: Male Coding Team Lead: : 1935 Requested By: Jerome Chang Order Number: [id number] Bg MD: Kyra Chen M.D. Measurements Intervals [place] Rate: 57 P: 69 MS: 270 QRS: 23 QRSD: 111 T: 31 QT: 366 QTc: 358 Interpretive Statements ELECTRONIC ATRIAL PACEMAKER ELECTRONIC VENTRICULAR PACEMAKER ABNORMAL RHYTHM ECG WARNING: DATA QUALITY MAY AFFECT INTERPRETATION Compared to ECG 04/24/2015 21:56:15 No significant changes Electronically Signed On 12-23-2020 23:03:17 CDT by Kyra Chen M.D. [id number]
--- NOTE | 2020-12-22 10:15 | CT_ITS ---
WS: [id number] CT CHEST ANGIOGRAPHY WITH REFORMATS HISTORY: dyspnea TECHNIQUE: Contiguous axial images are obtained through the chest during arterial injection of intrav enous contrast. Images are reconstructed to evaluate the pulmonary arteries. MIP imaging also reviewe d. All CT scans at [facility] use at least one of these dose optimization techniques: aut omated exposure control; mA and/or kV adjustment per patient size (includes targeted exams where dose is matched to clinical indication); or iterative reconstruction. CONTRAST: Visipaque 320; 95 mL IV. DLP: 574.29 mGy.cm COMPARISON: 04/10/2020 Excellent opacification of the pulmonary arteries. No pulmonary embolism. Moderate atherosclerosis ao rta with ectasia and atherosclerotic plaque. Intimal thickening with no aneurysm. No dissection. Mode rate enlargement of the LEFT heart chambers. No RIGHT heart strain. No pericardial or pleural effusio ns. Centrilobular emphysema. Mild elevation of the LEFT hemidiaphragm with chronic atelectasis at the mary g bases. Early interstitial thickening at the lung bases without significant progression. No pulmonar y mass or pneumonia. Beam hardening artifact from patient's generator over the RIGHT upper thorax sec ondary to the defibrillator. Prior cholecystectomy. No osteoblastic or osteolytic bone disease. CT/CT angio chest PE protcl [id number] IMPRESSION: 1. No pulmonary embolism. 2. Stable interstitial fibrotic changes at the lung bases. No pneumonia. 3. Chronic emphysema, stable. 4. Ectasia thoracic aorta is stable.
--- NOTE | 2020-12-22 10:28 | W.ED.GENADLT ---
HPI - General Adult General: Chief complaint: General Medical Stated complaint: right hip pain, back pain Time Seen by Provider: 12/22/20 10:01 History of Present Illness: HPI narrative: 85-year-old male presents emergency room with right hip and back pain. 2 weeks ago he fell landed on his back. He states he has been sore since but the last day or so his right hip pain in his back pain had worsened and now has increasing shortness of breath. He is on nocturnal oxygen due to a previous Covid infection but he feels like he needs it during the day as well now to. He denies any fever sweats or chills denies any productive cough. He is not on any anticoagulants. He does have a history of atrial fibrillation is on amiodarone as well as Plavix. Onset (ago): week(s) (2) Location: back and right (hip) Radiation: non-radiation Pain Consistency: intermittent Relieving factors: rest Exacerbating factors: movement Associated symptoms: Deny chest pain, confusion, cough, diaphoresis, decreased appetite, dyspnea, fevers/chills, headache(s), malaise, nausea, rash, palpitations, seizures, short of breath, syncope, vomiting or weakness Treatments prior to arrival: none Review of Systems Const: Denies: malaise or diaphoresis ENMT: Denies: throat pain, ear or mastoid pain, nasal discharge or nasal congestion Card: Denies: chest pain, palpitations or syncope Resp: Denies: dyspnea GI: Denies: nausea or vomiting : Denies: flank pain, dysuria, urinary frequency or urinary urgency Skin/Breast: Denies: rash Neuro: Denies: headache(s) or confusion PFSH ED PFSH: Medical History Abdominal aortic aneurysm Arthritis ASHD (arteriosclerotic heart disease) BPH loc w urin obs/LUTS Chronic back pain Elevated PSA History of pacemaker Hyperlipidemia Hypertension Hypokalemia Pacemaker Peripheral arterial disease Thoracic aortic aneurysm Ulcerative colitis Surgical History H/O arthroscopy of left knee History of back surgery Hx of cholecystectomy S/P femoral-femoral bypass surgery Family History Mother , at in her 80's Diabetes Father , at age 88 Diabetes CAD (coronary artery disease) Stroke Brother CAD (coronary artery disease) Grandmother Cancer Family/Other Stroke Suicide Other Osteoporosis Denies family history of Clotting disorder Dementia Chronic kidney disease (CKD) Anesthesia complication Bleeding disorder Lung disease Social History Smoking and tobacco status: former smoker Quit status (tobacco): has quit using tobacco Year quit tobacco: 1970 Former quit date comment: Hx of 2 PPD x 35 Years Second hand smoke exposure: No Smoking risk assessment/counseling performed?: No Alcohol intake: current Alcohol intake frequency: holidays/special occasions only Alcohol type: wine Counseling given: No Counseling given: No Lives independently: Yes Household members: spouse Marital status: service: Yes Current occupational status: retired History of recent travel: No Current gender identity: Male Physical Exam Const: COMMON NORMALS: no acute distress GENERAL APPEARANCE: cooperative and comfortable ORIENTATION/CONSCIOUSNESS: Yes awake, Yes oriented to person, Yes oriented to place and Yes oriented to time HENMT: COMMON NORMALS: normocephalic, atraumatic, hearing grossly normal bilaterally and external ears normal HEAD & SCALP: normocephalic and atraumatic EXTERNAL EAR: Yes external ears normal Neck/C-Spine: COMMON NORMALS: no JVD Resp: COMMON NORMALS: normal respiratory effort, No retractions, No use of accessory muscles and clear to auscultation bilaterally AUSCULTATION: clear to auscultation bilaterally Cardio: COMMON NORMALS: no JVD, regular rate, regular rhythm and No murmurs present (Cardio) RATE: regular rate RHYTHM: regular rhythm GI: COMMON NORMALS: Soft to palpation and No hepatosplenomegaly present AUSCULTATION: Yes normoactive bowel sounds PALPATION: Yes Soft to palpation, No Tenderness to palpation present (GI), No Guarding due to palpation present (GI) and Yes No hepatosplenomegaly present Extremity: COMMON NORMALS: normal to inspection, capillary refill normal, no clubbing, cyanosis or edema, no calf tenderness and no pedal edema Neuro: SENSORIUM/ORIENTATION: Yes oriented to person, Yes oriented to place and Yes oriented to time Skin: COMMON NORMALS: no rashes or lesions noted GENERAL SKIN EXAM: no rashes or lesions noted Course Vital Signs: Vital signs: Vital Signs Temperature 98.1 F 12/22/20 10:08 Pulse Rate 96 12/22/20 12:12 Respiratory Rate 16 12/22/20 12:12 Blood Pressure 132/73 12/22/20 12:12 Pulse Oximetry 94 12/22/20 12:12 MDM - General Adult MDM Narrative: Medical decision making narrative: Work-up negative will discharge home he was previously prescribed pain medications follow-up as needed Lab Data: Labs: Lab Results 12/22/20 12/22/20 12/22/20 Range/Units 10:23 10:23 10:23 WBC 8.9 (4.0-10.0) 10^3/ uL RBC 3.97 L (4.1-5.3) 10^6/u L Hgb 13.1 (11.7-16.6) g/dL Hct 38.2 L (42.0-52.0) % MCV 96.2 H (80-94) fL MCH 33.0 (28.0-34.0) pg MCHC 34.3 (30.0-36.0) g/dL RDW 15.2 H (12.1-15.1) % Plt Count 221 (130-400) 10^3/c mm MPV 9.7 (7.4-10.4) fL Neut % (Auto) 75.2 % Lymph % (Auto) 14.5 % [place] % (Auto) 7.8 % Eos % (Auto) 1.0 % Baso % (Auto) 0.6 % Neut # (Auto) 6.68 (1.8-7.7) 10^3/u L Lymph # (Auto) 1.3 (0.8-4.8) 10^3/u L [place] # (Auto) 0.7 (0.2-0.9) 10^3/u L Eos # (Auto) 0.1 (0.0-0.8) 10^3/u L Baso # (Auto) 0.1 (0.0-0.1) 10^3/u L Nucleated RBC % (a uto) 0 % Nucleated RBCs # 0.0 /100WBC Specimen Type Arterial Sample Site Brachial, right ABG pH 7.45 (7.35-7.45) ABG pCO2 39.3 (35-45) mmHg ABG pO2 69.3 L (80.0-100.0) mmH g ABG HCO3 27.5 H (22-26) mmol/L ABG O2 Saturation 94.4 ABG Base Excess 3.4 H (-2.0-2.0) mmol/ L Evans Test Pos A-a O2 Gradient 4.0 L (5-10) mmHg Hematocrit 40.0 L (42-52) % Hgb O2 Saturation 92.3 L (95-100) % Carboxyhemoglobin 1.4 (0.4-20.1) %THgb Methemoglobin 0.9 (0.4-1.5) % Total Hemoglobin 13.0 L (14-18) g/dL Sodium 138.0 136 (131-143) mmol/L Potassium 3.9 4.2 (3.5-5.0) mmol/L Glucose 153.0 H 140 H (70-115) mg/dL Ionized Calcium 1.1 (1.1-1.4) mmol/L O2 Delivery Device Nc O2 Liters/Min 2.0 % Program Proposals Coordinator ID jmn Chloride 100 (98-107) mmol/L Carbon Dioxide 25 (22-29) mmol/L Anion Gap 15.2 (5-19) BUN 32 H (8-23) mg/dL Creatinine 1.4 H (0.7-1.2) mg/dL GFR Calculation Not Reportable Calculated Osmolal ity 291 (285-295) mOsm/k g Calcium 8.1 L (8.5-10.5) mg/dL Total Bilirubin 0.7 (0.15-1.2) mg/dL AST 45 H (0-40) U/L ALT 57 H (0-41) U/L Alkaline Phosphata se 124 (40-130) IU/L Creatine Kinase 42 (39-308) U/L Troponin T Baselin e (0-15) ng/L Troponin T 120 Min [place] (0-15) ng/L Delta Troponin T (0-10) ABS# Total Protein 5.8 L (6.6-8.7) g/dL Albumin 3.7 (3.5-5.2) g/dL Globulin 2.1 (1.3-4.6) g/dL Urine Color (Yellow) Urine Appearance (CLEAR) Urine pH (5-7) Ur Specific Gravit y (1.005-1.030) Urine Protein (Negative) Urine Glucose (UA) (Normal) Urine Ketones (Negative) Urine Blood (Negative) Urine Nitrate (Negative) Urine Bilirubin (Negative) Urine Urobilinogen (Negative) mg/dL Ur Leukocyte Ann ase (Negative) 12/22/20 12/22/20 12/22/20 Range/Units 10:23 12:20 13:34 WBC (4.0-10.0) 10^3/ uL RBC (4.1-5.3) 10^6/u L Hgb (11.7-16.6) g/dL Hct (42.0-52.0) % MCV (80-94) fL MCH (28.0-34.0) pg MCHC (30.0-36.0) g/dL RDW (12.1-15.1) % Plt Count (130-400) 10^3/c mm MPV (7.4-10.4) fL Neut % (Auto) % Lymph % (Auto) % [place] % (Auto) % Eos % (Auto) % Baso % (Auto) % Neut # (Auto) (1.8-7.7) 10^3/u L Lymph # (Auto) (0.8-4.8) 10^3/u L [place] # (Auto) (0.2-0.9) 10^3/u L Eos # (Auto) (0.0-0.8) 10^3/u L Baso # (Auto) (0.0-0.1) 10^3/u L Nucleated RBC % (a uto) % Nucleated RBCs # /100WBC Specimen Type Sample Site ABG pH (7.35-7.45) ABG pCO2 (35-45) mmHg ABG pO2 (80.0-100.0) mmH g ABG HCO3 (22-26) mmol/L ABG O2 Saturation ABG Base Excess (-2.0-2.0) mmol/ L Evans Test A-a O2 Gradient (5-10) mmHg Hematocrit (42-52) % Hgb O2 Saturation (95-100) % Carboxyhemoglobin (0.4-20.1) %THgb Methemoglobin (0.4-1.5) % Total Hemoglobin (14-18) g/dL Sodium (131-143) mmol/L Potassium (3.5-5.0) mmol/L Glucose (70-115) mg/dL Ionized Calcium (1.1-1.4) mmol/L O2 Delivery Device O2 Liters/Min % Program Proposals Coordinator ID Chloride (98-107) mmol/L Carbon Dioxide (22-29) mmol/L Anion Gap (5-19) BUN (8-23) mg/dL Creatinine (0.7-1.2) mg/dL GFR Calculation Calculated Osmolal ity (285-295) mOsm/k g Calcium (8.5-10.5) mg/dL Total Bilirubin (0.15-1.2) mg/dL AST (0-40) U/L ALT (0-41) U/L Alkaline Phosphata se (40-130) IU/L Creatine Kinase (39-308) U/L Troponin T Baselin e 30 H (0-15) ng/L Troponin T 120 Min [place] 27.38 H (0-15) ng/L Delta Troponin T -2.62 L (0-10) ABS# Total Protein (6.6-8.7) g/dL Albumin (3.5-5.2) g/dL Globulin (1.3-4.6) g/dL Urine Color Straw (Yellow) Urine Appearance Clear (CLEAR) Urine pH 7 (5-7) Ur Specific Gravit y 1.005 (1.005-1.030) Urine Protein Neg (Negative) Urine Glucose (UA) Norm (Normal) Urine Ketones Negative (Negative) Urine Blood Neg (Negative) Urine Nitrate Negative (Negative) Urine Bilirubin Neg (Negative) Urine Urobilinogen Norm (Negative) mg/dL Ur Leukocyte Ann ase Negative (Negative) Discharge Plan Discharge Patient Disposition: Home Clinical Impression: Back pain, Hip pain, right, Fall Condition: Stable Prescriptions: No Action multivitamin Tablet 1 tab PO DAILY RF: 0 cetirizine [Zyrtec] 10 mg tablet 10 mg PO DAILY PRN (Reason: Allergy Symptoms) RF: 0 nitroglycerin [Nitrostat] 0.4 mg tablet, sublingual 0.4 mg SUBLINGUAL Q5M PRN (Reason: Chest Pain) RF: 0 docusate sodium 100 mg capsule 100 mg PO DAILY RF: 0 furosemide 40 mg tablet 60 mg PO DAILY RF: 0 trazodone 50 mg tablet 50 mg PO BEDTIME PRN (Reason: Sleep) RF: 0 zinc 50 mg tablet 50 mg PO DAILY@12 RF: 0 ascorbic acid (vitamin C) 1,000 mg tablet 1,000 mg PO DAILY@12 RF: 0 ezetimibe 10 mg tablet 10 mg PO DAILY Qty: 90 RF: 3 polyethylene glycol 3350 [Miralax] 17 gram powder in packet 17 g PO QAM RF: 0 rosuvastatin [Crestor] 20 mg tablet 40 mg PO DAILY RF: 0 magnesium oxide 400 mg magnesium tablet 400 mg PO DAILY RF: 0 silodosin [Rapaflo] 8 mg capsule 4 mg PO DAILY RF: 0 Anoro Ellipta 62.5-25 mcg/actuation blister with device 1 inh inhalation DAILY Qty: 60 RF: 3 isosorbide mononitrate 30 mg tablet extended release 24 hr 30 mg PO DAILY 90 Days Qty: 90 RF: 3 amiodarone 200 mg tablet 200 mg PO DAILY RF: 0 clopidogrel 75 mg tablet 75 mg PO DAILY RF: 0 flunisolide 25 mcg (0.025 %) [place],Non-Aerosol 1 spray INTRANASAL BID PRN (Reason: Nasal Congestion) RF: 0 Tylenol Extra Strength 500 mg Tablet 1,000 mg PO PRN RF: 0 Flonase 50 mcg/actuation [place],Suspension 1 - 2 spray INTRANASAL PRN RF: 0 melatonin 10 mg Tablet 10 - 20 mg PO BEDTIME RF: 0 Vitamin D3 1 cap PO DAILY@12 RF: 0 carvedilol 3.125 mg tablet 3.125 mg PO BID RF: 0 finasteride 5 mg tablet 5 mg PO DAILY RF: 0 potassium chloride 20 mEq tablet extended release 20 meq PO DAILY@12 RF: 0 Discharge Orders: Discharge ED (Routine); Ordered 12/22/20 Ordered By: Jerome Lozoya Referrals: Bashir Rosales MD [Primary Care Provider] - Discharge Diet: Usual diet Discharge Activity: Increase activity as tolerated Patient Instructions: Opioid Safety Coding Level of Care Code ED [facility] Program Coordinator for Bob Morillo
[2020-12-22 10:31] LABS: Basophils # 0.1 10^3/uL (0.0-0.1); Basophils % 0.6 %; Eosinophils # 0.1 10^3/uL (0.0-0.8); Hematocrit 38.2 % (42.0-52.0); Hemoglobin 13.1 g/dL (11.7-16.6); Lymphocytes # 1.3 10^3/uL (0.8-4.8); Lymphocytes % 14.5 %; Mean Corpuscular HGB Conc 34.3 g/dL (30.0-36.0); Mean Corpuscular Volume 96.2 fL (80-94); Mean Platelet Volume 9.7 fL (7.4-10.4); Monocytes # 0.7 10^3/uL (0.2-0.9); Monocytes % 7.8 %; Neutrophils # 6.68 10^3/uL (1.8-7.7); Neutrophils % 75.2 %; Nucleated Red Blood Cells % 0 %; Platelet Count 221 10^3/cmm (130-400); Red Blood Count 3.97 10^6/uL (4.1-5.3); Red Cell Distribution Width 15.2 % (12.1-15.1); White Blood Count 8.9 10^3/uL (4.0-10.0)
[2020-12-22 10:34] LABS: ABG PCO2 39.3 mmHg (35-45); ABG PH Result 7.45 (7.35-7.45); Base Excess ABG 3.4 mmol/L (-2.0-2.0); Blood Gas Allen Test Pos; Blood Gas Sample Site Brachial, right; Blood Gas Sample Type Arterial; Carboxyhemoglobin 1.4 %THgb (0.4-20.1); HCO3 ABG 27.5 mmol/L (22-26); HGB O2 Sat 92.3 % (95-100); Ionized Calcium Level - ABG 1.1 mmol/L (1.1-1.4); Methemoglobin 0.9 % (0.4-1.5); Oxygen Device NC; Oxygen Saturation ABG 94.4; PO2 ABG 69.3 mmHg (80.0-100.0); Potassium Level - ABG 3.9 mmol/L (3.5-5.0)
[2020-12-22 10:59] LABS: Alanine Aminotransferase 57 U/L (0-41); Albumin Level 3.7 g/dL (3.5-5.2); Alkaline Phosphatase 124 IU/L (40-130); Anion Gap 15.2 (5-19); Aspartate Amino Transferase 45 U/L (0-40); Blood Urea Nitrogen 32 mg/dL (8-23); Calcium 8.1 mg/dL (8.5-10.5); Carbon Dioxide 25 mmol/L (22-29); Chloride 100 mmol/L (98-107); Creatine Phosphokinase 42 U/L (39-308); Globulin 2.1 g/dL (1.3-4.6); Glucose 140 mg/dL (65-115); Osmolality Calculated 291 mOsm/kg (285-295); Potassium 4.2 mmol/L (3.5-5.1); Sodium 136 mmol/L (136-145); Total Bilirubin 0.7 mg/dL (0.15-1.2); Total Protein 5.8 g/dL (6.6-8.7)
[2020-12-22 11:00] LABS: Troponin(5th) Baseline 30 ng/L (0-15)
[2020-12-22] MEDS: iodixanol 320 mg/mL 100mL Btl IV (11:18)
--- NOTE | 2020-12-22 11:57 | PC.PHAR ---
PT STATES HE TAKES CARE OF HIS OWN MEDICATIONS-PT STATES HE TOOK HIS AM MEDS BUT IS UNSURE WHICH MEDS THOSE ARE-PT STATES HE HAS CARVEDILOL 3.125 BUT ISNT TAKING IT-EXT MED HISTORY SHOWS LAST FILLED ON 11/30/20 90D/S-PT STATES HE TAKES LASIX 60MG DAILY-EXT MED HISTORY SHOWS LAST FILLED ON 12/04/20 FOR 40MG PO DAILY TAKE 80MG NEXT DAY ALTERNATING DIRECTED-EXT MED HISTORY SHOWS TRAZODONE 50MG LAST FILLED ON 08/03/20 90D/S PT STATES HE HAS BUT NOT TAKING
[2020-12-22 12:12] VITALS: BP 132/73; PULSE 96; RESP 16; O2SAT 94
[2020-12-22 12:47] LABS: Troponin 5 2HR 27.38 ng/L (0-15)
[2020-12-22 12:49] LABS: Troponin 5 2HR Delta -2.62 ABS# (0-10)
[2020-12-22 13:39] LABS: Add Urine Microscopic? NO; Charge for UA Resulting for Rev
[2020-12-22 13:40] LABS: Bilirubin Urine Neg (Negative); Blood Urine Neg (Negative); Glucose Urine UA Norm (Normal); Ketones Urine Negative (Negative); Leukocyte Esterase Urine Negative (Negative); Nitrate Urine Negative (Negative); Protein Urine Neg (Negative); Specific Gravity, Urine 1.005 (1.005-1.030); Urine Appearance Clear (CLEAR); Urine Color Straw (Yellow); Urobilinogen Urine Norm (Negative); pH Urine 7 (5-7)
== END 2020-12-22 13:54 | disposition home or self-care (01) ==
PROVIDERS: Emergency Provider Family Medicine; PCP Family Medicine
DX: M54.9 Dorsalgia, unspecified (principal); M25.551 Pain in right hip; Z79.02 Long term (current) use of antithrombotics/antiplatelets; E78.5 Hyperlipidemia, unspecified; I10 Essential (primary) hypertension; Z95.0 Presence of cardiac pacemaker; Z87.891 Personal history of nicotine dependence
CPT/HCPCS: 36415; 36600; 71275; 73502; 80051; 80053; 81003; 82330; 82550; 82805; 84484; 85025; 93005; 99283; Q9967

== ENCOUNTER 2021-01-11 09:33 | Outpatient (CLI) | payer MEDICARE, BC, SELFPAY ==
--- NOTE | 2021-01-11 10:00 | CT_ITS ---
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 MIP and volume rendering imaging has also been performed. All images are reviewed. All C T scans at [facility] use at least one of these dose optimization techniques: automated ex posure control; mA and/or kV adjustment per patient size (includes targeted exams where dose is match ed to clinical indication); or iterative reconstruction. Contrast: Visipaque 320; 95 mL IV. DLP: 1565.09 mGycm COMPARISON: 08/18/2020 Abdominal aorta: Tortuosity with moderate to severe calcified plaque and intimal thickening within th e abdominal aorta. Ectasia and tortuosity but no significant aneurysmal dilatation. Plaque at the raoul gins of the SMA and celiac axis. No significant stenosis. 50% stenosis involving the origin of the LE FT renal artery. [place] is patent. RIGHT lower extremity arterial system: Very slight aneurysmal dilatation of the proximal common iliac artery to 2.1 cm is stable. Heavy calcified plaque extends from the common into the internal and ext ernal iliac arteries. There is scattered calcified plaque and intimal thickening throughout the super ficial femoral artery. Deep profundas intact. Slight increased amount of calcification through [place] 's canal in the popliteal artery. Very slight dilatation of the RIGHT popliteal artery to 1.0 cm but no change otherwise. Intermittently visualized runoff to the ankles. LEFT lower extremity arterial system: Very minimal ectasia and dilatation common iliac artery 1.7 cm. Calcification continues into the internal and external iliac arteries. Mild aneurysmal dilatation to 1.5 cm of the proximal LEFT internal iliac artery. Deep profunda and SFA are patent. Increasing calc ified plaque in the mid to distal SFA. There is aneurysmal dilatation measuring 1.6 cm involving the distal SFA. No increase in size. 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 Transverse diameter is 3.4 cm which is similar to the prior study. Poorly visualized runoff t o the ankle. Heavily calcified arteries to the ankle. Beyond the proximal tibioperoneal trunk the run off becomes very limited. Mild elevation of the LEFT hemidiaphragm. Prior cholecystectomy. No adrenal mass. Cortical atrophy an d cortical thinning of each kidney. Negative GI tract for acute process. No free fluid or adenopathy. Prostate gland hypertrophy and enlargement. Advanced degenerative changes in the lumbar spine. CT/CT angio abd aorta runof [id number] IMPRESSION: 1. Severe atherosclerosis abdominal aorta without aneurysm. 2. Stable bilateral common iliac artery aneurysms. 3. 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 4. Distal LEFT SFA aneurysm stable at 1.6 cm. 5. Very slight dilatation RIGHT popliteal artery measuring 1.0 cm. 6. Moderately limited runoff to the ankles via all 3 vessels, most significant on the LEFT.
[2021-01-11] MEDS: iodixanol 320 mg/mL 100mL Btl IV (10:23)
== END 2021-01-11 09:34 | disposition home or self-care (01) ==
LOC: RADWPI 09:35
PROVIDERS: PCP Family Medicine; Visit Provider Thoracic Surgery (Cardiothoracic Vascular Surgery)
DX: I72.3 Aneurysm of iliac artery (principal); I70.0 Atherosclerosis of aorta; I72.4 Aneurysm of artery of lower extremity
CPT/HCPCS: 75635; Q9967

== ENCOUNTER → 2021-02-21 13:29 | Outpatient (BNVA) | payer MEDICARE, BC, SELFPAY | PROVIDERS: PCP Family Medicine; Visit Provider Urology | DX: N40.1 Benign prostatic hyperplasia with lower urinary tract symptoms (principal); N41.1 Chronic prostatitis | CPT/HCPCS: 81003 ==

== ENCOUNTER 2021-03-16 15:24 | Outpatient (CLI) | payer MEDICARE, BC, SELFPAY ==
--- NOTE | 2021-03-16 15:33 | CT_ITS ---
WS: [id number] NONCONTRAST CT RIGHT HIP TECHNIQUE: Noncontrast CT right with coronal and sagittal reformatted images. CLINICAL INFORMATION: RT HIP PAIN, FALL COMPARISON: February 28, 2021 DLP: 757.[address] scans at [facility] use at least one of these dose optimization techniques: automated e xposure control; mA and/or kV adjustment per patient size (includes targeted exams where dose is matc hed to clinical indication); or iterative reconstruction. FINDINGS: Moderate degenerative arthritis right hip with joint space narrowing. Mild subchondral cystic change and hypertrophic spurring. Normal femoral neck and proximal femoral shaft. Normal femoral head. Normal visualized right pubic rami. Sclerosis and lucencies in the right sacral ala compatible with insufficiency fractures. Left sacral ala not included on this examination. Right sacral insufficiency fractures are new since CT August 18, 2020. Bilateral sacral insufficiency fra ctures in retrospect present recent CT January 11, 2021. This appears progressed today compatible with a cute to subacute insufficiency fractures Partially evaluated fat-containing right inguinal hernia with a nonobstructive herniated loop of krystin l. This can be further evaluated with contrast-enhanced CT abdomen pelvis. Enlarged prostate measuring 5.5 CCM. Recommend correlation PSA. CT/CT hip RT wo con* [id number] IMPRESSION: 1. Moderate degenerative arthritis right hip with joint space narrowing. No ac lower elwha hip fractures. 2. Evidence of acute to subacute right sacral insufficiency fractures. Recomme nd correlation with sacral pain. Left sacrum is not included on this examinatio n 3. Normal visualized right pubic rami. 4. Partially evaluated fat-containing right inguinal hernia with a nonobstruct chandni loop of herniated bowel. This can be further evaluated with CT abdomen pelv is. 5. Enlarged prostate measuring 5.5 CM. Recommend correlation PSA.
== END 2021-03-16 15:25 | disposition home or self-care (01) ==
PROVIDERS: PCP Family Medicine; Visit Provider Family Medicine
DX: M16.11 Unilateral primary osteoarthritis, right hip (principal); W19.XXXA Unspecified fall, initial encounter; K40.90 Unilateral inguinal hernia, without obstruction or gangrene, not specified as recurrent; N40.0 Benign prostatic hyperplasia without lower urinary tract symptoms
CPT/HCPCS: 73700

== ENCOUNTER → 2021-09-26 11:20 | Outpatient (BNVA) | payer MEDICARE, BC, SELFPAY | PROVIDERS: PCP Family Medicine; Visit Provider Internal Medicine Cardiovascular Disease | DX: I71.2 Thoracic aortic aneurysm, without rupture (principal); Z95.0 Presence of cardiac pacemaker; I73.9 Peripheral vascular disease, unspecified | CPT/HCPCS: 99214 ==

== ENCOUNTER 2021-10-12 12:13 | Outpatient (CLI) | payer MEDICARE, BC, SELFPAY ==
--- NOTE | 2021-10-12 12:00 | CT_ITS ---
WS: [id number] Exam: CT angio abd aorta runof [id number] Date/Time of Exam: 10/12/2021 12:24 PM Reason For Exam: Aneurysm of iliac, SFA and popliteal arteries DLP: 1823.[address] scans at [facility] use at least one of these dose optimization techniques: automated e xposure control; mA and/or kV adjustment per patient size (includes targeted exams where dose is matc hed to clinical indication); or iterative reconstruction. CT angiography of the abdominal aorta and lower extremity arteries performed in the axial plane with sagittal coronal reformatted images. Comparison is made to prior study 01/11/2021. The abdominal aorta is normal in caliber without aneurysm. The SMA and celiac arteries are patent. Th e bilateral renal arteries are patent. The inferior mesenteric artery is patent. Stable appearing ane urysmal dilatation of the right and left common iliac arteries. The right measuring about 2 cm at gre atest diameter, the left about 1.7 cm. The internal and external iliac arteries are patent. Mild aneu rysmal dilatation of the left superficial femoral artery measuring about 1.6 cm at greatest diameter. Unremarkable right superficial femoral artery. Stable aneurysmal dilatation of the left popliteal artery measuring about 3.4 cm at greatest diameter . There is some mural thrombus in the aneurysm this is unchanged in appearance. Again noted is signif icant disease involving the right and left trifurcations most severe on the left than the right. This shows little change. Lower lung zones are generally clear. Severe coronary artery calcifications are noted. The liver, spl een and pancreas are unremarkable. The gallbladder is surgically absent. Stomach is unremarkable. Mod erate amount of stool in the large bowel. Small bowel loops are normal in caliber. Mild bilateral loli al atrophy. The kidneys function and drain normally. No renal mass or obstruction. Mild nodularity ad renal glands. No lymphadenopathy or free fluid in the abdomen or pelvis. Normal appendix visualized. Intact urinary bladder. Prostatomegaly. No destructive bone lesions are seen. CT/CT angio abd aorta runof [id number] IMPRESSION: 1. Tortuosity and generalized atherosclerotic plaquing of the abdominal aorta. The major branches of the abdominal aorta are patent. 2. 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 3. 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 Mild aneur ysmal dilatation of the left superficial femoral artery. 4. Limited arterial runoff to the lower legs secondary to advanced atherosclero tic plaquing of the trifurcations. This is more severe on the left than the rig ht. Little change since the last exam.
[2021-10-12] MEDS: iodixanol 320 mg/mL 100mL Btl IV (13:36)
[2021-10-12 13:42] LABS: Blood Urea Nitrogen 26 mg/dL (8-23)
== END 2021-10-12 12:14 | disposition home or self-care (01) ==
LOC: RAD 12:15
PROVIDERS: PCP Family Medicine; Visit Provider Internal Medicine Cardiovascular Disease
DX: Z01.812 Encounter for preprocedural laboratory examination (principal); I73.9 Peripheral vascular disease, unspecified; I70.0 Atherosclerosis of aorta; I72.4 Aneurysm of artery of lower extremity
CPT/HCPCS: 75635; 82565; 84520

== ENCOUNTER 2021-10-22 13:35 | Outpatient (CLI) | payer MEDICARE, BC, SELFPAY ==
[2021-10-22 14:21] LABS: Blood Urea Nitrogen 34 mg/dL (8-23)
== END 2021-10-22 13:36 | disposition home or self-care (01) ==
LOC: LAB 13:38
PROVIDERS: PCP Family Medicine; Visit Provider Internal Medicine Cardiovascular Disease
DX: E87.6 Hypokalemia (principal); I10 Essential (primary) hypertension; I25.10 Atherosclerotic heart disease of native coronary artery without angina pectoris; I71.2 Thoracic aortic aneurysm, without rupture; I71.4 Abdominal aortic aneurysm, without rupture
CPT/HCPCS: 82565; 84520

== ENCOUNTER → 2021-10-30 13:05 | Outpatient (BNVA) | payer MEDICARE, BC, SELFPAY | PROVIDERS: PCP Family Medicine; Visit Provider Internal Medicine Critical Care Medicine | DX: J44.9 Chronic obstructive pulmonary disease, unspecified (principal); Z87.891 Personal history of nicotine dependence; Z86.16 Personal history of COVID-19; E78.5 Hyperlipidemia, unspecified; I10 Essential (primary) hypertension | CPT/HCPCS: 71046; 99213 ==

== ENCOUNTER → 2022-02-01 10:59 | Outpatient (BNVA) | payer MEDICARE, BC, SELFPAY | PROVIDERS: PCP Family Medicine; Visit Provider Internal Medicine Cardiovascular Disease | DX: Z45.02 Encounter for adjustment and management of automatic implantable cardiac defibrillator (principal) | CPT/HCPCS: 93283 ==

== ENCOUNTER 2022-03-25 10:48 | Outpatient (CLI) | payer MEDICARE, BC, SELFPAY ==
--- NOTE | 2022-03-25 11:00 | USR_ITS ---
PROCEDURE INFORMATION: Exam: US Duplex Left Lower Extremity Arteries Or Arterial Bypass Grafts Exam date and time: 03/25/2022 11:22 AM Age: 86 years old Clinical indication: Condition or disease; Lower extremity, left; Prior surgery; Surgery date: 6+ months; Surgery type: Fem pop bypass 1990 left lower extremity; Patient HX: Known popliteal aneurysm left; Additional info: Popliteal anuerysm TECHNIQUE: Imaging protocol: Left Real-time duplex scan of the arteries or arterial bypass grafts of the left lower extremity with 2-D benson scale, color Doppler flow and spectral waveform analysis. Images documented and saved. COMPARISON: CT abdomen pelvis wo con [id number] 07/19/2019 6:17 PM FINDINGS: Left common femoral artery: No occlusion or significant stenosis. Normal waveform. Fem pop bypass is patent. Left popliteal artery: Previously known aneurysm is seen. The true lumen is present measuring 1.9 cm x 1.7 cm x 1.8 cm. The aneurysm has AP measurement of 3.2 cm, transverse diameter 2.9 cm, and a length of 4.7 cm . Triphasic waveform PSV is 98 cm/s Left calf/foot arteries: No occlusion or significant stenosis in the visualized arteries. Normal waveforms. Dorsalis pedis artery diffuse disease monophasic 13.4 cm/s. Left [employer] monophasic low amplitude waveforms 25 cm/s. Findings are correspond to diffuse disease US/CV arterial duplex [facility] [id number] IMPRESSION: 1. Patent femoropopliteal bypass graft. 2. Known popliteal artery aneurysm as described. 3. Trifurcation vessels show diffuse nonocclusive disease .
== END 2022-03-25 10:49 | disposition home or self-care (01) ==
LOC: RAD 10:48
PROVIDERS: PCP Family Medicine; Visit Provider Thoracic Surgery (Cardiothoracic Vascular Surgery)
DX: I72.4 Aneurysm of artery of lower extremity (principal)
CPT/HCPCS: 93926

== ENCOUNTER → 2022-04-12 10:58 | Outpatient (BNVA) | payer MEDICARE, BC, SELFPAY | PROVIDERS: PCP Family Medicine; Visit Provider Internal Medicine Critical Care Medicine | DX: J44.9 Chronic obstructive pulmonary disease, unspecified (principal); Z86.16 Personal history of COVID-19; Z87.891 Personal history of nicotine dependence; J98.6 Disorders of diaphragm; J98.11 Atelectasis; I25.10 Atherosclerotic heart disease of native coronary artery without angina pectoris; I35.1 Nonrheumatic aortic (valve) insufficiency; I34.0 Nonrheumatic mitral (valve) insufficiency; Z95.810 Presence of automatic (implantable) cardiac defibrillator | CPT/HCPCS: 99213; 99214 ==

== ENCOUNTER → 2022-05-01 14:50 | Outpatient (BNVA) | payer MEDICARE, BC, SELFPAY | PROVIDERS: PCP Family Medicine; Visit Provider Internal Medicine Cardiovascular Disease | DX: R06.02 Shortness of breath (principal); R60.9 Edema, unspecified; I50.9 Heart failure, unspecified; I42.9 Cardiomyopathy, unspecified; Z95.810 Presence of automatic (implantable) cardiac defibrillator; I25.10 Atherosclerotic heart disease of native coronary artery without angina pectoris; I72.4 Aneurysm of artery of lower extremity; Z87.891 Personal history of nicotine dependence | CPT/HCPCS: 36415; 80048; 83880; 99214 ==

== ENCOUNTER → 2022-09-17 09:10 | Outpatient (BNVA) | payer MEDICARE, BC, SELFPAY | PROVIDERS: PCP Family Medicine; Visit Provider Internal Medicine Cardiovascular Disease | DX: Z45.02 Encounter for adjustment and management of automatic implantable cardiac defibrillator (principal) | CPT/HCPCS: 93296 ==

== ENCOUNTER → 2022-10-24 10:12 | Outpatient (BNVA) | payer MEDICARE, BC, SELFPAY | PROVIDERS: PCP Family Medicine; Visit Provider Internal Medicine Pulmonary Disease | DX: J44.9 Chronic obstructive pulmonary disease, unspecified (principal); Z86.16 Personal history of COVID-19; Z87.891 Personal history of nicotine dependence; J98.6 Disorders of diaphragm; J98.11 Atelectasis; I25.10 Atherosclerotic heart disease of native coronary artery without angina pectoris; Z95.810 Presence of automatic (implantable) cardiac defibrillator; I35.1 Nonrheumatic aortic (valve) insufficiency; I34.0 Nonrheumatic mitral (valve) insufficiency | CPT/HCPCS: 99214 ==

== ENCOUNTER → 2022-10-29 13:47 | Outpatient (BNVA) | payer MEDICARE, BC, SELFPAY | PROVIDERS: PCP Family Medicine; Visit Provider Internal Medicine Cardiovascular Disease | DX: I11.0 Hypertensive heart disease with heart failure (principal); I50.9 Heart failure, unspecified; I42.9 Cardiomyopathy, unspecified; I25.10 Atherosclerotic heart disease of native coronary artery without angina pectoris; I72.4 Aneurysm of artery of lower extremity; Z95.810 Presence of automatic (implantable) cardiac defibrillator; J44.9 Chronic obstructive pulmonary disease, unspecified; E78.2 Mixed hyperlipidemia; I71.40 Abdominal aortic aneurysm, without rupture, unspecified; Z87.891 Personal history of nicotine dependence | CPT/HCPCS: 99214 ==

== ENCOUNTER → 2022-12-18 14:46 | Outpatient (BNVA) | payer MEDICARE, BC, SELFPAY | PROVIDERS: PCP Family Medicine; Visit Provider Nurse Practitioner Family | DX: L24.4 Irritant contact dermatitis due to drugs in contact with skin (principal); Z85.828 Personal history of other malignant neoplasm of skin; Z87.891 Personal history of nicotine dependence | CPT/HCPCS: 99214 ==

== ENCOUNTER → 2023-01-27 10:56 | Outpatient (BNVA) | payer MEDICARE, BC, SELFPAY | PROVIDERS: PCP Family Medicine; Visit Provider Nurse Practitioner Family | DX: C43.39 Malignant melanoma of other parts of face (principal); L57.0 Actinic keratosis; D69.2 Other nonthrombocytopenic purpura; L57.8 Other skin changes due to chronic exposure to nonionizing radiation; Z87.891 Personal history of nicotine dependence; Z85.828 Personal history of other malignant neoplasm of skin | CPT/HCPCS: 11102; 17000; 17003; 99213 ==

== ENCOUNTER → 2023-02-17 09:51 | Outpatient (BNVA) | payer MEDICARE, BC, SELFPAY | PROVIDERS: PCP Family Medicine; Visit Provider Dermatology | DX: C49.9 Malignant neoplasm of connective and soft tissue, unspecified (principal); L57.0 Actinic keratosis; Z85.828 Personal history of other malignant neoplasm of skin; Z87.891 Personal history of nicotine dependence | CPT/HCPCS: 17000; 99213 ==